=== PATIENT | male | born 1970 | race Caucasian/White ===

== ENCOUNTER 2024-01-15 14:21 | Emergency (ER) | payer MEDICAID ==
[~2024-01-15] VITALS: Ht 167.6 cm; Wt 51.9 kg
[2024-01-15 14:31] VITALS: BP 120/86; PULSE 82; RESP 18; TEMP 98.2; O2SAT 98
== END 2024-01-15 16:30 | disposition home or self-care (01) ==
LOC: ER 14:23 → EDBD 14:23 → ER 16:30
DX: R53.1 Weakness (principal); R51.9 Headache, unspecified; Z59.00 Homelessness unspecified; F15.90 Other stimulant use, unspecified, uncomplicated
CPT/HCPCS: 99281

== ENCOUNTER 2024-03-05 10:40 | Emergency (ER) | payer MEDICAID ==
[~2024-03-05] VITALS: Ht 175.3 cm; Wt 61.4 kg
[2024-03-05] MEDS ORDERED: ketorolac trometh 30MG/ML vial 30 MG/ML VIAL IV ONE (11:50)
[2024-03-05] MEDS: ketorolac trometh 30MG/ML vial 30 MG/ML VIAL IM ONE (11:55)
[2024-03-05 12:13] LABS: BASOPHILS # (AUTO) 0.1 X10'3 (0-0.2); BASOPHILS % (AUTO) 1.9 % (0-1); EOSINOPHILS # (AUTO) 0.5 X10'3 (0-0.9); EOSINOPHILS % (AUTO) 10.1 % (0-6); HEMOGLOBIN 12.1 g/dl (14.0-17.9); LYMPHOCYTES # (AUTO) 1.9 X10'3 (1.1-4.8); MEAN CORPUSCULAR HEMOGLOBIN 27.7 PG (27.0-31.0); MEAN CORPUSCULAR HGB CONC 32.6 g/dL (33.0-36.5); MEAN CORPUSCULAR VOLUME 84.7 FL (78-98); MEAN PLATELET VOLUME 7.5 FL (7.4-10.4); MONOCYTES # (AUTO) 0.7 X10'3 (0-0.9); MONOCYTES % (AUTO) 14.2 % (2-12); NEUTROPHILS # (AUTO) 1.6 X10'3 (1.8-7.7); NEUTROPHILS % (AUTO) 33.8 % (42-75); PLATELET COUNT 281 X10'3 (140-440); RED BLOOD COUNT 4.37 X10'6 (4.70-6.10); RED CELL DISTRIBUTION WIDTH 16.5 % (11.5-14.5); WHITE BLOOD COUNT 4.8 X10'3 (4.5-11.0)
[2024-03-05 12:27] LABS: BILIRUBIN,URINE NEGATIVE (Neg); CLARITY,URINE CLEAR (Clear); COLOR,URINE YELLOW (Yellow); GLUCOSE, URINE NEGATIVE (Neg); KETONES,URINE NEGATIVE (Neg); LEUKOCYTE ESTERASE ,URINE NEGATIVE (Neg); OCCULT BLOOD,URINE NEGATIVE (Neg); PROTEIN,URINE NEGATIVE (Neg)
[2024-03-05 12:30] LABS: ALANINE AMINOTRANSFERASE 39 U/L (12-78); ALBUMIN 2.8 G/DL (3.4-5.0); ALBUMIN/GLOBULIN RATIO 0.7 (1.1-1.5); ALKALINE PHOSPHATASE 55 IU/L (46-116); ANION GAP 4 (8-16); ASPARTATE AMINO TRANSFERASE 35 U/L (10-37); BILIRUBIN,TOTAL 0.4 MG/DL (0.1-1.0); BLOOD UREA NITROGEN 9 MG/DL (7-18); BUN/CREATININE RATIO 9.9 (10.0-20.0); CALCIUM 8.4 MG/DL (8.5-10.1); CHLORIDE 102 MMOL/L (99-107); CREATININE 0.91 MG/DL (0.60-1.10); ETHANOL < 10 MG/DL (<10); GLUCOSE 85 MG/DL (70-104); POTASSIUM 3.3 MMOL/L (3.5-5.1); SODIUM 140 MMOL/L (135-145); TOTAL CARBON DIOXIDE 33.6 MMOL/L (24-32); TOTAL PROTEIN 6.6 G/DL (6.4-8.2); eCRCL 80 ML/MIN; eGFR 86 ML/MIN
[2024-03-05 12:37] LABS: URINE AMPHETAMINE SCREEN POSITIVE (Neg); URINE BARBITUATE SCREEN NEGATIVE (Neg); URINE BENZODIAZEPINES SCREEN NEGATIVE (Neg); URINE CANNABINOID SCREEN POSITIVE (Neg); URINE COCAINE SCREEN NEGATIVE (Neg); URINE METHADONE SCREEN NEGATIVE (Neg); URINE OPIATE SCREEN NEGATIVE (Neg); URINE PHENCYCLIDINE SCREEN NEGATIVE (Neg)
[2024-03-05 12:41] LABS: NITRITES, URINE NEGATIVE (Neg); UA COLLECTION TYPE VOIDED
[2024-03-06] MEDS ORDERED: NICO-687 TOP (07:48)
[2024-03-06] MEDS ORDERED: TRAZ-256 PO (07:48)
[2024-03-06] MEDS ORDERED: LIT300C PO (07:48)
[2024-03-06] MEDS ORDERED: IBUP-1984 PO (07:48)
[2024-03-06] MEDS ORDERED: MELO-100 PO (07:48)
[2024-03-06] MEDS ORDERED: MELOXICAM 7.5 MG TABLET PO SCH (08:00)
[2024-03-06] MEDS ORDERED: ibuprofen tablet 400 MG TABLET PO SCH (08:41)
[2024-03-06] MEDS ORDERED: ibuprofen tablet 400 MG TABLET PO PRN (09:14)
[2024-03-06] MEDS: nicotine 21mg patch - 24 hr TD SCH (09:15)
[2024-03-06] MEDS: lithium carbonate 300mg SR tablet (LithoBID) PO SCH (09:18)
[2024-03-06] MEDS: MELOXICAM 7.5 MG TABLET PO PRN (09:21)
[2024-03-06 14:04] VITALS: BP 115/84; PULSE 78; RESP 15; TEMP 98.2; O2SAT 99
[2024-03-06] MEDS ORDERED: traZODone 50mg tablet PO SCH (21:00)
== END 2024-03-06 14:07 | disposition home or self-care (01) ==
LOC: ER 10:40
DX: R45.851 Suicidal ideations (principal); R11.2 Nausea with vomiting, unspecified; M54.2 Cervicalgia; F17.200 Nicotine dependence, unspecified, uncomplicated; F31.9 Bipolar disorder, unspecified; F12.90 Cannabis use, unspecified, uncomplicated; Z59.00 Homelessness unspecified; Z20.822 Contact with and (suspected) exposure to COVID-19
CPT/HCPCS: 36415; 80053; 80305; 80320; 81003; 85025; 87811; 99284

== ENCOUNTER 2024-03-29 14:00 | Emergency (ER) | payer MEDICAID ==
[~2024-03-29] VITALS: Ht 170.2 cm; Wt 74.0 kg
[~2024-03-29 14:00] MED LIST: IBUP-1984 PO; LIT300C PO; MELO-100 PO; NICO-687 TOP; TRAZ-256 PO
[2024-03-29] MEDS: ketorolac trometh 15mg/ml vial 15 MG/ML ML IM ONE (15:46)
[2024-03-29 16:05] VITALS: BP 114/84; PULSE 77; RESP 16; TEMP 98.8; O2SAT 100
== END 2024-03-29 16:08 | disposition home or self-care (01) ==
LOC: ER 14:01
DX: G89.29 Other chronic pain (principal); M54.50 Low back pain, unspecified; F12.90 Cannabis use, unspecified, uncomplicated; F31.9 Bipolar disorder, unspecified; Z79.899 Other long term (current) drug therapy; Z79.1 Long term (current) use of non-steroidal anti-inflammatories (NSAID); Z59.00 Homelessness unspecified
CPT/HCPCS: 96372; 99283; J1885

== ENCOUNTER 2024-04-01 14:45 | Emergency (ER) | payer MEDICAID ==
[~2024-04-01] VITALS: Ht 170.2 cm; Wt 53.0 kg
[2024-04-01] MEDS: ondansetron 4mg rapidly disintigrating tab PO ONE (16:36)
[2024-04-01] MEDS: ketorolac trometh 15mg/ml vial 15 MG/ML ML IM ONE (16:38)
[2024-04-01 16:57] VITALS: BP 122/68; PULSE 76; RESP 16; TEMP 98.2; O2SAT 98
[2024-04-02] MEDS ORDERED: ONDA-245 PO (03:08)
== END 2024-04-01 16:58 | disposition home or self-care (01) ==
LOC: ER 14:46
DX: M54.50 Low back pain, unspecified (principal); R11.2 Nausea with vomiting, unspecified; F12.10 Cannabis abuse, uncomplicated; Z79.1 Long term (current) use of non-steroidal anti-inflammatories (NSAID); Z79.899 Other long term (current) drug therapy
CPT/HCPCS: 96372; 99283; J1885

== ENCOUNTER 2024-04-01 23:44 | Emergency (ER) | payer MEDICAID ==
[~2024-04-01] VITALS: Ht 170.2 cm; Wt 56.4 kg
[2024-04-02 00:37] LABS: ALANINE AMINOTRANSFERASE 56 U/L (12-78); ALBUMIN 3.1 G/DL (3.4-5.0); ALBUMIN/GLOBULIN RATIO 0.8 (1.1-1.5); ALKALINE PHOSPHATASE 60 IU/L (46-116); ANION GAP 5 (8-16); ASPARTATE AMINO TRANSFERASE 31 U/L (10-37); BILIRUBIN,TOTAL 0.4 MG/DL (0.1-1.0); BLOOD UREA NITROGEN 27 MG/DL (7-18); BUN/CREATININE RATIO 19.4 (10.0-20.0); CHLORIDE 100 MMOL/L (99-107); CREATININE 1.39 MG/DL (0.60-1.10); GLUCOSE 120 MG/DL (70-104); POTASSIUM 3.6 MMOL/L (3.5-5.1); SODIUM 142 MMOL/L (135-145); TOTAL PROTEIN 7.1 G/DL (6.4-8.2); eCRCL 48 ML/MIN; eGFR 53 ML/MIN
[2024-04-02 00:46] LABS: LIPASE 49 U/L (16-77)
[2024-04-02 01:07] LABS: BASOPHILS # (AUTO) 0.1 X10'3 (0-0.2); BASOPHILS % (AUTO) 0.7 % (0-1); EOSINOPHILS # (AUTO) 0.5 X10'3 (0-0.9); EOSINOPHILS % (AUTO) 6.2 % (0-6); HEMATOCRIT 41.3 % (42.0-52.0); HEMOGLOBIN 13.2 g/dl (14.0-17.9); LYMPHOCYTES # (AUTO) 2.2 X10'3 (1.1-4.8); LYMPHOCYTES % (AUTO) 25.5 % (21-51); MEAN CORPUSCULAR HGB CONC 31.9 g/dL (33.0-36.5); MEAN CORPUSCULAR VOLUME 84.8 FL (78-98); MONOCYTES # (AUTO) 0.8 X10'3 (0-0.9); MONOCYTES % (AUTO) 8.6 % (2-12); NEUTROPHILS # (AUTO) 5.2 X10'3 (1.8-7.7); PLATELET COUNT 299 X10'3 (140-440); RED BLOOD COUNT 4.88 X10'6 (4.70-6.10); RED CELL DISTRIBUTION WIDTH 16.2 % (11.5-14.5); WHITE BLOOD COUNT 8.8 X10'3 (4.5-11.0)
[2024-04-02] MEDS: normal saline 1000ml 1,000 ML IV ONE (01:08)
[2024-04-02] MEDS: ondansetron/PF 4mg/2ml inj IV ONE (01:09)
[2024-04-02] MEDS: ketorolac trometh 15mg/ml vial 15 MG/ML ML IV ONE (01:10)
[2024-04-02] MEDS ORDERED: ONDA-245 PO (03:08)
[2024-04-02 04:14] VITALS: BP 116/72; PULSE 90; RESP 19; TEMP 98.1; O2SAT 99
== END 2024-04-02 04:18 | disposition home or self-care (01) ==
LOC: ER 23:44
DX: K29.00 Acute gastritis without bleeding (principal); F17.200 Nicotine dependence, unspecified, uncomplicated; F12.90 Cannabis use, unspecified, uncomplicated; Z79.1 Long term (current) use of non-steroidal anti-inflammatories (NSAID); Z79.899 Other long term (current) drug therapy; Z59.00 Homelessness unspecified
CPT/HCPCS: 36415; 80053; 83690; 84145; 84484; 85025; 96361; 96374; 96375; 99285; J1885; J2405; J7030

== ENCOUNTER 2024-05-13 16:14 | Emergency (ER) | payer MEDICAID ==
[~2024-05-13] VITALS: Ht 165.1 cm; Wt 54.5 kg
[~2024-05-13 16:14] MED LIST changes: +ONDA-245 PO
[2024-05-13 18:55] LABS: BASOPHILS # (AUTO) 0.1 X10'3 (0-0.2); EOSINOPHILS # (AUTO) 0.1 X10'3 (0-0.9); LYMPHOCYTES # (AUTO) 1.3 X10'3 (1.1-4.8); LYMPHOCYTES % (AUTO) 10.2 % (21-51); MEAN PLATELET VOLUME 6.7 FL (7.4-10.4); NEUTROPHILS # (AUTO) 10.5 X10'3 (1.8-7.7)
[2024-05-13 18:57] LABS: BASOPHILS % (AUTO) 0.5 % (0-1); EOSINOPHILS % (AUTO) 0.6 % (0-6); HEMATOCRIT 29.4 % (42.0-52.0); HEMOGLOBIN 9.3 g/dl (14.0-17.9); MEAN CORPUSCULAR HEMOGLOBIN 26.7 PG (27.0-31.0); MEAN CORPUSCULAR HGB CONC 31.5 g/dL (33.0-36.5); MEAN CORPUSCULAR VOLUME 84.7 FL (78-98); MONOCYTES # (AUTO) 1.1 X10'3 (0-0.9); MONOCYTES % (AUTO) 8.6 % (2-12); NEUTROPHILS % (AUTO) 80.1 % (42-75); PLATELET COUNT 793 X10'3 (140-440); RED BLOOD COUNT 3.47 X10'6 (4.70-6.10); RED CELL DISTRIBUTION WIDTH 16.3 % (11.5-14.5); WHITE BLOOD COUNT 13.1 X10'3 (4.5-11.0)
[2024-05-13 19:15] LABS: ALBUMIN 2.6 G/DL (3.4-5.0); ANION GAP 3 (8-16); BLOOD UREA NITROGEN 8 MG/DL (7-18); CALCIUM 8.6 MG/DL (8.5-10.1); CHLORIDE 103 MMOL/L (99-107); ETHANOL < 10 MG/DL (<10); GLUCOSE 140 MG/DL (70-104); POTASSIUM 3.7 MMOL/L (3.5-5.1); SODIUM 137 MMOL/L (135-145); THYROID STIMULATING HORMONE 1.95 ulU/ml (0.34-4.50); TOTAL CARBON DIOXIDE 30.7 MMOL/L (24-32); eCRCL 64 ML/MIN; eGFR 78 ML/MIN
[2024-05-13] MEDS: famotidine 20mg tablet PO ONE (19:54)
[2024-05-13] MEDS: mag hydrox/Alum hydrox/simeth 30ml oral suspension PO ONE (19:55)
[2024-05-13 20:14] LABS: BILIRUBIN,URINE NEGATIVE (Neg); CLARITY,URINE CLEAR (Clear); COLOR,URINE YELLOW (Yellow); GLUCOSE, URINE NEGATIVE (Neg); KETONES,URINE NEGATIVE (Neg); LEUKOCYTE ESTERASE ,URINE NEGATIVE (Neg); NITRITES, URINE NEGATIVE (Neg); OCCULT BLOOD,URINE NEGATIVE (Neg); PH,URINE 8.5 (4.8-8.0); PROTEIN,URINE NEGATIVE (Neg)
[2024-05-13 20:23] LABS: UA COLLECTION TYPE CLN CATCH MIDSTREAM
[2024-05-13 20:41] LABS: URINE AMPHETAMINE SCREEN NEGATIVE (Neg); URINE BARBITUATE SCREEN NEGATIVE (Neg); URINE BENZODIAZEPINES SCREEN NEGATIVE (Neg); URINE CANNABINOID SCREEN POSITIVE (Neg); URINE COCAINE SCREEN NEGATIVE (Neg); URINE METHADONE SCREEN NEGATIVE (Neg); URINE OPIATE SCREEN NEGATIVE (Neg); URINE PHENCYCLIDINE SCREEN NEGATIVE (Neg)
[2024-05-14 10:54] VITALS: BP 110/82; PULSE 71; RESP 16; TEMP 98.1; O2SAT 98
[2024-05-14 15:48] LABS: ALANINE AMINOTRANSFERASE 25 U/L (12-78); ALBUMIN 2.2 G/DL (3.4-5.0); ALBUMIN/GLOBULIN RATIO 0.5 (1.1-1.5); ALKALINE PHOSPHATASE 85 IU/L (46-116); ANION GAP 5 (8-16); ASPARTATE AMINO TRANSFERASE 20 U/L (10-37); BILIRUBIN,TOTAL 0.2 MG/DL (0.1-1.0); BLOOD UREA NITROGEN 11 MG/DL (7-18); BUN/CREATININE RATIO 10.3 (10.0-20.0); CALCIUM 8.5 MG/DL (8.5-10.1); CHLORIDE 102 MMOL/L (99-107); CREATININE 1.07 MG/DL (0.60-1.10); GLUCOSE 132 MG/DL (70-104); POTASSIUM 4.2 MMOL/L (3.5-5.1); SODIUM 134 MMOL/L (135-145); TOTAL CARBON DIOXIDE 27.5 MMOL/L (24-32); TOTAL PROTEIN 6.3 G/DL (6.4-8.2); eCRCL 60 ML/MIN; eGFR 72 ML/MIN
== END 2024-05-14 19:36 | disposition still patient (30) ==
LOC: ER 16:15
DX: R45.851 Suicidal ideations (principal); Z20.822 Contact with and (suspected) exposure to COVID-19; F31.9 Bipolar disorder, unspecified; F12.90 Cannabis use, unspecified, uncomplicated
CPT/HCPCS: 36415; 80048; 80053; 80305; 80320; 81003; 84443; 85025; 87811; 99285; A6212

== ENCOUNTER 2024-05-29 09:24 | Emergency (ER) | payer MEDICAID ==
[~2024-05-29] VITALS: Ht 167.6 cm; Wt 54.1 kg
[~2024-05-29 09:24] MED LIST changes: +PER5325T PO
[2024-05-29 09:49] VITALS: BP 103/75; PULSE 88; O2SAT 94
[2024-05-29 10:57] VITALS: RESP 16
[2024-05-29] MEDS: ketorolac trometh 15mg/ml vial 15 MG/ML ML IM ONE (10:57)
[2024-05-29] MEDS ORDERED: IBUP-1985 PO (10:57)
[2024-05-29 11:01] VITALS: TEMP 98.4
== END 2024-05-29 11:02 | disposition home or self-care (01) ==
LOC: ER 09:25
DX: G89.29 Other chronic pain (principal); M54.6 Pain in thoracic spine; F12.90 Cannabis use, unspecified, uncomplicated; Z79.1 Long term (current) use of non-steroidal anti-inflammatories (NSAID); Z79.2 Long term (current) use of antibiotics; Z79.899 Other long term (current) drug therapy
CPT/HCPCS: 96372; 99283; J1885

== ENCOUNTER 2024-05-30 08:10 | Emergency (ER) | payer MEDICAID ==
[~2024-05-30] VITALS: Ht 167.6 cm; Wt 53.2 kg
[~2024-05-30 08:10] MED LIST changes: +IBUP-1985 PO
[2024-05-30] MEDS: ketorolac trometh 15mg/ml vial 15 MG/ML ML IM ONE (08:38)
[2024-05-30 08:41] VITALS: BP 147/88; PULSE 113; RESP 16; TEMP 98.3; O2SAT 100
== END 2024-05-30 08:44 | disposition home or self-care (01) ==
LOC: ER 08:11
DX: G89.29 Other chronic pain (principal); M54.50 Low back pain, unspecified; F12.90 Cannabis use, unspecified, uncomplicated; Z88.8 Allergy status to other drugs, medicaments and biological substances
CPT/HCPCS: 96372; 99283; J1885

== ENCOUNTER 2024-05-31 09:58 | Emergency (ER) | payer MEDICAID ==
[~2024-05-31] VITALS: Ht 160 cm; Wt 68.0 kg
[2024-05-31 10:15] VITALS: PULSE 102; O2SAT 99
[2024-05-31 11:59] VITALS: RESP 16
[2024-05-31] MEDS: ketorolac trometh 15mg/ml vial 15 MG/ML ML IM ONE (11:59)
[2024-05-31 12:22] VITALS: TEMP 97.8
== END 2024-05-31 12:23 | disposition home or self-care (01) ==
LOC: ER 09:58
DX: G89.29 Other chronic pain (principal); M54.9 Dorsalgia, unspecified; F12.90 Cannabis use, unspecified, uncomplicated; Z79.1 Long term (current) use of non-steroidal anti-inflammatories (NSAID); Z79.899 Other long term (current) drug therapy
CPT/HCPCS: 96372; 99283; J1885

== ENCOUNTER 2024-06-05 16:21 | Emergency (ER) | payer MEDICAID ==
[~2024-06-05] VITALS: Ht 167.6 cm; Wt 61.4 kg
[2024-06-05 16:33] VITALS: BP 126/75; PULSE 99; RESP 15; TEMP 98; O2SAT 99
[2024-06-05] MEDS ORDERED: acetaminophen 325mg tablet PO ONE (19:55)
[2024-06-05] MEDS ORDERED: LANS15TA5 PO (19:56)
[2024-06-06] MEDS ORDERED: lansoprazole 15mg solutab PO SCH (07:30)
== END 2024-06-05 20:13 | disposition left against medical advice (07) ==
LOC: ER 16:22
DX: K21.9 Gastro-esophageal reflux disease without esophagitis (principal); F12.90 Cannabis use, unspecified, uncomplicated; G89.29 Other chronic pain; Z79.1 Long term (current) use of non-steroidal anti-inflammatories (NSAID); Z79.899 Other long term (current) drug therapy
CPT/HCPCS: 99281

== ENCOUNTER 2024-06-19 09:27 | Emergency (ER) | payer MEDICAID ==
[~2024-06-19 09:27] MED LIST changes: +LANS15TA5 PO
== END 2024-06-19 12:44 | disposition left against medical advice (07) ==
LOC: ER 09:27
DX: M54.9 Dorsalgia, unspecified (principal); Z53.21 Procedure and treatment not carried out due to patient leaving prior to being seen by health care provider

== ENCOUNTER 2024-06-22 12:56 | Emergency (ER) | payer MEDICAID ==
[~2024-06-22] VITALS: Ht 170.2 cm; Wt 60.0 kg
[2024-06-22 13:01] VITALS: BP 131/97; PULSE 112; RESP 16; TEMP 98.4; O2SAT 100
[2024-06-22] MEDS ORDERED: MELO-102 PO (14:59)
== END 2024-06-22 15:10 | disposition home or self-care (01) ==
LOC: ER 12:56
DX: G89.29 Other chronic pain (principal); M54.59 Other low back pain; F31.9 Bipolar disorder, unspecified; F12.90 Cannabis use, unspecified, uncomplicated; Z59.00 Homelessness unspecified
CPT/HCPCS: 99282

== ENCOUNTER 2024-06-27 11:12 | Emergency (ER) | payer MEDICAID, OTHER ==
[~2024-06-27] VITALS: Ht 170.2 cm; Wt 66.0 kg
[~2024-06-27 11:12] MED LIST changes: +MELO-102 PO; -PER5325T PO
[2024-06-27 11:22] VITALS: BP 116/78; PULSE 89; RESP 18; TEMP 98.1; O2SAT 99
[2024-06-27] MEDS: acetaminophen 325mg tablet PO ONE (14:32)
== END 2024-06-27 14:48 | disposition home or self-care (01) ==
LOC: ER 11:12
DX: G89.29 Other chronic pain (principal); M54.59 Other low back pain; F31.9 Bipolar disorder, unspecified; Z59.00 Homelessness unspecified; F12.90 Cannabis use, unspecified, uncomplicated
CPT/HCPCS: 99282; 99283

== ENCOUNTER 2024-07-13 18:40 | Emergency (ER) | payer MEDICAID, OTHER ==
[~2024-07-13] VITALS: Ht 170.2 cm; Wt 54.1 kg
[2024-07-13 19:00] VITALS: TEMP 98.2
[2024-07-13 21:06] VITALS: BP 136/89; PULSE 70; O2SAT 99
[2024-07-13 21:30] VITALS: RESP 18
[2024-07-13] MEDS: proCHLORperazine 10 MG/2 ml inj IM ONE (21:30)
[2024-07-13] MEDS: ketorolac trometh 30MG/ML vial 30 MG/ML VIAL IM ONE (21:30)
[2024-07-13] MEDS: acetaminophen 325mg tablet PO ONE (21:31)
== END 2024-07-13 21:52 | disposition home or self-care (01) ==
LOC: ER 18:41
DX: G43.909 Migraine, unspecified, not intractable, without status migrainosus (principal); G89.29 Other chronic pain; M54.9 Dorsalgia, unspecified; F31.9 Bipolar disorder, unspecified; F12.90 Cannabis use, unspecified, uncomplicated; F10.90 Alcohol use, unspecified, uncomplicated; Y90.9 Presence of alcohol in blood, level not specified
CPT/HCPCS: 96372; 99284; J0780; J1885

== ENCOUNTER 2024-07-15 19:17 | Emergency (ER) | payer MEDICAID ==
[~2024-07-15] VITALS: Ht 170.2 cm; Wt 59.8 kg
[2024-07-15] MEDS: diphenhydrAMINE 25mg capsule PO ONE (21:40)
[2024-07-15] MEDS: ketorolac trometh 15mg/ml vial 15 MG/ML ML IM ONE (21:40)
[2024-07-15] MEDS: proCHLORperazine 10 MG/2 ml inj IM ONE (21:40)
[2024-07-15 22:06] VITALS: BP 135/92; PULSE 88; RESP 16; O2SAT 99
[2024-07-15 22:24] VITALS: TEMP 99.2
== END 2024-07-15 22:24 | disposition home or self-care (01) ==
LOC: ER 19:18
DX: G43.909 Migraine, unspecified, not intractable, without status migrainosus (principal); G89.29 Other chronic pain; M54.9 Dorsalgia, unspecified; F31.9 Bipolar disorder, unspecified; F10.90 Alcohol use, unspecified, uncomplicated; F12.90 Cannabis use, unspecified, uncomplicated; Y90.9 Presence of alcohol in blood, level not specified
CPT/HCPCS: 96372; 99284; J0780; J1885; Q0163

== ENCOUNTER 2024-07-21 02:12 | Emergency (ER) | payer MEDICAID ==
[~2024-07-21] VITALS: Ht 170.2 cm; Wt 56.6 kg
[2024-07-21 02:14] VITALS: BP 127/74; PULSE 79
[2024-07-21] MEDS: ketorolac trometh 15mg/ml vial 15 MG/ML ML IM ONE (02:39)
[2024-07-21] MEDS: acetaminophen 325mg tablet PO ONE (02:39)
[2024-07-21] MEDS: proCHLORperazine 10mg tablet PO ONE (02:39)
[2024-07-21 02:43] VITALS: RESP 12; TEMP 98; O2SAT 100
== END 2024-07-21 02:44 | disposition home or self-care (01) ==
LOC: ER 02:13
DX: G43.909 Migraine, unspecified, not intractable, without status migrainosus (principal); F31.9 Bipolar disorder, unspecified; F12.90 Cannabis use, unspecified, uncomplicated; F10.90 Alcohol use, unspecified, uncomplicated; Y90.9 Presence of alcohol in blood, level not specified
CPT/HCPCS: 99281

== ENCOUNTER 2024-07-24 20:49 | Emergency (ER) | payer MEDICAID ==
[~2024-07-24] VITALS: Ht 170.2 cm; Wt 57.1 kg
[2024-07-24 21:15] VITALS: BP 119/72; PULSE 70; RESP 20; TEMP 98.5; O2SAT 98
== END 2024-07-24 23:17 | disposition left against medical advice (07) ==
LOC: ER 20:49
DX: G43.909 Migraine, unspecified, not intractable, without status migrainosus (principal); Z53.21 Procedure and treatment not carried out due to patient leaving prior to being seen by health care provider

== ENCOUNTER 2024-07-25 14:50 | Emergency (ER) | payer MEDICAID ==
[2024-07-25 16:02] LABS: BILIRUBIN,URINE SMALL (Neg); CLARITY,URINE CLEAR (Clear); COLOR,URINE YELLOW (Yellow); GLUCOSE, URINE NEGATIVE (Neg); KETONES,URINE TRACE mg/dl (Neg); LEUKOCYTE ESTERASE ,URINE NEGATIVE (Neg); NITRITES, URINE NEGATIVE (Neg); OCCULT BLOOD,URINE SMALL (Neg); PROTEIN,URINE 30 mg/dl (Neg)
[2024-07-25 16:04] LABS: UA COLLECTION TYPE CLN CATCH MIDSTREAM
[2024-07-25 16:05] LABS: URINE AMPHETAMINE SCREEN POSITIVE (Neg); URINE BARBITUATE SCREEN NEGATIVE (Neg); URINE BENZODIAZEPINES SCREEN NEGATIVE (Neg); URINE CANNABINOID SCREEN POSITIVE (Neg); URINE COCAINE SCREEN NEGATIVE (Neg); URINE METHADONE SCREEN NEGATIVE (Neg); URINE OPIATE SCREEN NEGATIVE (Neg); URINE PHENCYCLIDINE SCREEN NEGATIVE (Neg)
[2024-07-25 16:08] LABS: BACTERIA,URINE FEW /HPF (Neg); RBC,URINE 20-50 /HPF (0-2); SQUAMOUS EPITHELIAL CELL,UR FEW /LPF (FEW); WBC,URINE 0-4 /HPF (0-4)
[2024-07-25 16:09] LABS: TRANSITIONAL EPI CELLS,URINE FEW /HPF
[2024-07-25 16:18] LABS: BASOPHILS # (AUTO) 0.1 X10'3 (0-0.2); BASOPHILS % (AUTO) 1.4 % (0-1); EOSINOPHILS # (AUTO) 0.1 X10'3 (0-0.9); EOSINOPHILS % (AUTO) 4.1 % (0-6); HEMATOCRIT 27.2 % (42.0-52.0); HEMOGLOBIN 8.4 g/dl (14.0-17.9); LYMPHOCYTES # (AUTO) 1.5 X10'3 (1.1-4.8); LYMPHOCYTES % (AUTO) 39.6 % (21-51); MEAN CORPUSCULAR HEMOGLOBIN 21.4 PG (27.0-31.0); MEAN CORPUSCULAR HGB CONC 30.8 g/dL (33.0-36.5); MEAN CORPUSCULAR VOLUME 69.6 FL (78-98); MEAN PLATELET VOLUME 7.4 FL (7.4-10.4); MONOCYTES # (AUTO) 0.6 X10'3 (0-0.9); MONOCYTES % (AUTO) 15.1 % (2-12); NEUTROPHILS # (AUTO) 1.5 X10'3 (1.8-7.7); NEUTROPHILS % (AUTO) 39.8 % (42-75); PLATELET COUNT 386 X10'3 (140-440); RED BLOOD COUNT 3.91 X10'6 (4.70-6.10); RED CELL DISTRIBUTION WIDTH 19.4 % (11.5-14.5); WHITE BLOOD COUNT 3.7 X10'3 (4.5-11.0)
[2024-07-25 16:42] LABS: ANION GAP 4 (8-16); BLOOD UREA NITROGEN 15 MG/DL (7-18); BUN/CREATININE RATIO 14.4 (10.0-20.0); CALCIUM 8.3 MG/DL (8.5-10.1); CHLORIDE 108 MMOL/L (99-107); CREATININE 1.04 MG/DL (0.60-1.10); ETHANOL < 10 MG/DL (<10); GLUCOSE 101 MG/DL (70-104); SODIUM 141 MMOL/L (135-145); THYROID STIMULATING HORMONE 1.06 ulU/ml (0.34-4.50); TOTAL CARBON DIOXIDE 29.3 MMOL/L (24-32); eGFR 74 ML/MIN
[2024-07-25 16:44] LABS: POTASSIUM 2.9 MMOL/L (3.5-5.1)
[2024-07-25 16:57] LABS: MICROCYTOSIS 2+; TOTAL CELLS COUNTED 100
[2024-07-25 16:58] LABS: ANISOCYTOSIS 2+; HYPOCHROMASIA 1+; PLATELET ESTIMATE NORMAL
[2024-07-25 16:59] LABS: ELLIPTOCYTES FW
[2024-07-25] MEDS: potassium bicarbonate/cit acid 25mEq tablet.effervescent PO STA (17:33)
[2024-07-26 12:51] VITALS: BP 141/80; PULSE 82; RESP 12; TEMP 98.1; O2SAT 97
== END 2024-07-26 12:56 | disposition still patient (30) ==
LOC: ER 14:50
DX: R45.851 Suicidal ideations (principal); G43.909 Migraine, unspecified, not intractable, without status migrainosus; F31.9 Bipolar disorder, unspecified; F12.90 Cannabis use, unspecified, uncomplicated; F10.90 Alcohol use, unspecified, uncomplicated; Z20.822 Contact with and (suspected) exposure to COVID-19; Y90.9 Presence of alcohol in blood, level not specified
CPT/HCPCS: 36415; 80048; 80305; 80320; 81001; 84443; 85007; 85025; 87811; 99283; 99284

== ENCOUNTER 2024-08-05 21:57 | Emergency (ER) | payer MEDICAID ==
[~2024-08-05] VITALS: Ht 167.6 cm; Wt 65.0 kg
[2024-08-05 21:58] VITALS: BP 149/98; PULSE 90; RESP 15; TEMP 97.6; O2SAT 98
== END 2024-08-05 22:24 | disposition home or self-care (01) ==
LOC: ER 21:58
DX: Z00.00 Encounter for general adult medical examination without abnormal findings (principal); R05.9 Cough, unspecified; G43.909 Migraine, unspecified, not intractable, without status migrainosus; F10.90 Alcohol use, unspecified, uncomplicated; F12.90 Cannabis use, unspecified, uncomplicated; F31.9 Bipolar disorder, unspecified; Y90.9 Presence of alcohol in blood, level not specified
CPT/HCPCS: 99283

== ENCOUNTER 2024-08-08 17:19 | Emergency (ER) | payer MEDICAID ==
[~2024-08-08] VITALS: Ht 170.2 cm; Wt 59.1 kg
[2024-08-08 18:09] VITALS: BP 117/79; PULSE 78; RESP 16; TEMP 98.2; O2SAT 95
== END 2024-08-08 19:30 | disposition home or self-care (01) ==
LOC: ER 17:20
DX: R45.851 Suicidal ideations (principal); G89.29 Other chronic pain; G43.909 Migraine, unspecified, not intractable, without status migrainosus; F12.90 Cannabis use, unspecified, uncomplicated; Z79.899 Other long term (current) drug therapy
CPT/HCPCS: 99283

== ENCOUNTER 2024-09-09 02:10 | Emergency (ER) | payer MEDICAID ==
[~2024-09-09] VITALS: Ht 170.2 cm; Wt 61.4 kg
[2024-09-09 02:14] VITALS: BP 135/78; PULSE 80; RESP 18; TEMP 97.4; O2SAT 98
== END 2024-09-09 03:11 | disposition left against medical advice (07) ==
LOC: ER 02:12
DX: M54.9 Dorsalgia, unspecified (principal); Z53.21 Procedure and treatment not carried out due to patient leaving prior to being seen by health care provider

== ENCOUNTER 2024-09-11 14:08 | Emergency (ER) | payer MEDICAID ==
[~2024-09-11] VITALS: Ht 170.2 cm; Wt 51.9 kg
[2024-09-11 15:33] LABS: BASOPHILS # (AUTO) 0.1 X10'3 (0-0.2); BASOPHILS % (AUTO) 0.8 % (0-1); EOSINOPHILS % (AUTO) 0.5 % (0-6); HEMATOCRIT 25.8 % (42.0-52.0); HEMOGLOBIN 8.1 g/dl (14.0-17.9); LYMPHOCYTES # (AUTO) 1.5 X10'3 (1.1-4.8); LYMPHOCYTES % (AUTO) 15.1 % (21-51); MEAN CORPUSCULAR HEMOGLOBIN 23.9 PG (27.0-31.0); MEAN CORPUSCULAR HGB CONC 31.5 g/dL (33.0-36.5); MEAN CORPUSCULAR VOLUME 75.9 FL (78-98); MEAN PLATELET VOLUME 6.9 FL (7.4-10.4); MONOCYTES # (AUTO) 1.1 X10'3 (0-0.9); MONOCYTES % (AUTO) 10.8 % (2-12); NEUTROPHILS # (AUTO) 7.2 X10'3 (1.8-7.7); NEUTROPHILS % (AUTO) 72.8 % (42-75); PLATELET COUNT 361 X10'3 (140-440); RED CELL DISTRIBUTION WIDTH 27.1 % (11.5-14.5); WHITE BLOOD COUNT 9.9 X10'3 (4.5-11.0)
[2024-09-11 15:59] LABS: ALBUMIN 2.6 G/DL (3.4-5.0); ANION GAP 6 (8-16); BLOOD UREA NITROGEN 11 MG/DL (7-18); BUN/CREATININE RATIO 12.5 (10.0-20.0); CALCIUM 8.4 MG/DL (8.5-10.1); CHLORIDE 106 MMOL/L (99-107); CREATININE 0.88 MG/DL (0.60-1.10); ETHANOL < 10 MG/DL (<10); GLUCOSE 92 MG/DL (70-104); POTASSIUM 3.9 MMOL/L (3.5-5.1); SODIUM 140 MMOL/L (135-145); THYROID STIMULATING HORMONE 1.68 ulU/ml (0.34-4.50); TOTAL CARBON DIOXIDE 28.5 MMOL/L (24-32); eCRCL 70 ML/MIN; eGFR 90 ML/MIN
[2024-09-11 16:39] LABS: BILIRUBIN,URINE NEGATIVE (Neg); CLARITY,URINE CLEAR (Clear); COLOR,URINE YELLOW (Yellow); GLUCOSE, URINE NEGATIVE (Neg); KETONES,URINE NEGATIVE (Neg); LEUKOCYTE ESTERASE ,URINE NEGATIVE (Neg); NITRITES, URINE NEGATIVE (Neg); OCCULT BLOOD,URINE NEGATIVE (Neg); PH,URINE 6.5 (4.8-8.0); PROTEIN,URINE TRACE mg/dl (Neg)
[2024-09-11 16:42] LABS: UA COLLECTION TYPE CLN CATCH MIDSTREAM
[2024-09-11 16:43] LABS: BACTERIA,URINE NONE SEEN /HPF (Neg); RBC,URINE NONE SEEN /HPF (0-2); WBC,URINE 0-4 /HPF (0-4)
[2024-09-11 16:44] LABS: MUCUS STRANDS NONE SEEN /LPF (Neg); SQUAMOUS EPITHELIAL CELL,UR NONE SEEN /LPF (FEW)
[2024-09-11 17:00] LABS: URINE AMPHETAMINE SCREEN POSITIVE (Neg); URINE BARBITUATE SCREEN NEGATIVE (Neg); URINE BENZODIAZEPINES SCREEN NEGATIVE (Neg); URINE CANNABINOID SCREEN POSITIVE (Neg); URINE COCAINE SCREEN NEGATIVE (Neg); URINE METHADONE SCREEN NEGATIVE (Neg); URINE OPIATE SCREEN NEGATIVE (Neg); URINE PHENCYCLIDINE SCREEN NEGATIVE (Neg)
[2024-09-11] MEDS ORDERED: PANT40TA54 PO (19:37)
[2024-09-11] MEDS ORDERED: QUET-1 PO (19:37)
[2024-09-11] MEDS: traMADol 50MG tablet PO ONE (19:50)
[2024-09-11] MEDS: quetiapine 100mg tablet PO SCH (20:12)
[2024-09-11] MEDS: cephalexin 250mg capsule PO SCH (20:12)
[2024-09-12] MEDS: pantoprazole 40mg Tablet.DR PO SCH (09:20)
[2024-09-12 13:41] VITALS: BP 99/61; PULSE 90; RESP 17; TEMP 98.4; O2SAT 97
== END 2024-09-12 13:38 | disposition still patient (30) ==
LOC: ER 14:09
DX: R45.851 Suicidal ideations (principal); L03.114 Cellulitis of left upper limb; G89.29 Other chronic pain; M54.9 Dorsalgia, unspecified; F15.90 Other stimulant use, unspecified, uncomplicated; G43.909 Migraine, unspecified, not intractable, without status migrainosus; F12.90 Cannabis use, unspecified, uncomplicated; F31.9 Bipolar disorder, unspecified; Z79.899 Other long term (current) drug therapy; Z59.00 Homelessness unspecified; Z20.822 Contact with and (suspected) exposure to COVID-19
CPT/HCPCS: 36415; 80048; 80305; 80320; 81001; 84443; 85025; 87811; 99284; 99285

== ENCOUNTER 2024-09-15 13:33 | Emergency (ER) | payer MEDICAID ==
[~2024-09-15] VITALS: Ht 170.2 cm; Wt 52.1 kg
[~2024-09-15 13:33] MED LIST changes: -IBUP-1984 PO; -IBUP-1985 PO; -LANS15TA5 PO; -LIT300C PO; -MELO-100 PO; -MELO-102 PO; -NICO-687 TOP; -ONDA-245 PO; +PANT40TA54 PO; +QUET-1 PO; -TRAZ-256 PO
[2024-09-15 15:47] LABS: BASOPHILS # (AUTO) 0.1 X10'3 (0-0.2); EOSINOPHILS # (AUTO) 0.1 X10'3 (0-0.9); HEMOGLOBIN 8.3 g/dl (14.0-17.9); LYMPHOCYTES # (AUTO) 1.3 X10'3 (1.1-4.8); MEAN PLATELET VOLUME 6.4 FL (7.4-10.4); MONOCYTES # (AUTO) 0.6 X10'3 (0-0.9); NEUTROPHILS # (AUTO) 1.5 X10'3 (1.8-7.7); WHITE BLOOD COUNT 3.6 X10'3 (4.5-11.0)
[2024-09-15 15:49] LABS: BASOPHILS % (AUTO) 2.9 % (0-1); EOSINOPHILS % (AUTO) 3.7 % (0-6); HEMATOCRIT 26.3 % (42.0-52.0); MEAN CORPUSCULAR HEMOGLOBIN 24.1 PG (27.0-31.0); MEAN CORPUSCULAR HGB CONC 31.6 g/dL (33.0-36.5); MEAN CORPUSCULAR VOLUME 76.2 FL (78-98); MONOCYTES % (AUTO) 17.1 % (2-12); NEUTROPHILS % (AUTO) 40.3 % (42-75); PLATELET COUNT 523 X10'3 (140-440); RED BLOOD COUNT 3.45 X10'6 (4.70-6.10); RED CELL DISTRIBUTION WIDTH 26.1 % (11.5-14.5)
[2024-09-15 15:58] LABS: ALBUMIN 2.5 G/DL (3.4-5.0); ANION GAP 4 (8-16); BLOOD UREA NITROGEN 12 MG/DL (7-18); CALCIUM 8.4 MG/DL (8.5-10.1); CHLORIDE 105 MMOL/L (99-107); GLUCOSE 100 MG/DL (70-104); POTASSIUM 3.7 MMOL/L (3.5-5.1); SODIUM 140 MMOL/L (135-145); TOTAL CARBON DIOXIDE 31.4 MMOL/L (24-32); eCRCL 62 ML/MIN; eGFR 78 ML/MIN
[2024-09-15 16:06] LABS: ETHANOL < 10 MG/DL (<10)
[2024-09-15 16:22] LABS: TOTAL CELLS COUNTED 100
[2024-09-15 16:23] LABS: PLATELET ESTIMATE INCREASED
[2024-09-15 16:24] LABS: ANISOCYTOSIS 3+; HYPOCHROMASIA 2+; MICROCYTOSIS 1+
[2024-09-15 16:25] LABS: ACANTHOCYTES FEW; ELLIPTOCYTES 1+; TEAR DROP CELLS 1+
[2024-09-15 16:36] LABS: BILIRUBIN,URINE SMALL (Neg); CLARITY,URINE CLEAR (Clear); COLOR,URINE YELLOW (Yellow); GLUCOSE, URINE NEGATIVE (Neg); KETONES,URINE TRACE mg/dl (Neg); LEUKOCYTE ESTERASE ,URINE NEGATIVE (Neg); NITRITES, URINE NEGATIVE (Neg); OCCULT BLOOD,URINE NEGATIVE (Neg); PROTEIN,URINE TRACE mg/dl (Neg)
[2024-09-15 16:39] LABS: UA COLLECTION TYPE URINAL
[2024-09-15 16:41] LABS: URINE AMPHETAMINE SCREEN POSITIVE (Neg); URINE BARBITUATE SCREEN NEGATIVE (Neg); URINE BENZODIAZEPINES SCREEN NEGATIVE (Neg); URINE CANNABINOID SCREEN POSITIVE (Neg); URINE COCAINE SCREEN NEGATIVE (Neg); URINE METHADONE SCREEN NEGATIVE (Neg); URINE OPIATE SCREEN NEGATIVE (Neg); URINE PHENCYCLIDINE SCREEN NEGATIVE (Neg)
[2024-09-15] MEDS ORDERED: NO HOME MEDS (16:45)
[2024-09-15 16:56] LABS: BACTERIA,URINE FEW /HPF (Neg); SQUAMOUS EPITHELIAL CELL,UR FEW /LPF (FEW); WBC,URINE 0-4 /HPF (0-4)
[2024-09-15 16:57] LABS: MUCUS STRANDS FEW /LPF (Neg)
[2024-09-16 10:58] VITALS: BP 134/76; PULSE 88; RESP 16; TEMP 98.8; O2SAT 98
[2024-09-17] MEDS ORDERED: FERR1TAB17 PO (17:20)
== END 2024-09-16 11:09 | disposition still patient (30) ==
LOC: ER 13:34
DX: R45.851 Suicidal ideations (principal); G43.909 Migraine, unspecified, not intractable, without status migrainosus; F31.9 Bipolar disorder, unspecified; F10.90 Alcohol use, unspecified, uncomplicated; F12.90 Cannabis use, unspecified, uncomplicated; Z20.822 Contact with and (suspected) exposure to COVID-19; Y90.9 Presence of alcohol in blood, level not specified
CPT/HCPCS: 36415; 80048; 80305; 80320; 81001; 85007; 85025; 87811; 99284

== ENCOUNTER 2024-09-17 13:20 | Emergency (ER) | payer MEDICAID ==
[~2024-09-17] VITALS: Ht 170.2 cm; Wt 60.0 kg
[~2024-09-17 13:20] MED LIST changes: +NO HOME MEDS; -PANT40TA54 PO; -QUET-1 PO
[2024-09-17 14:36] LABS: BASOPHILS # (AUTO) 0.1 X10'3 (0-0.2); BASOPHILS % (AUTO) 1.3 % (0-1); EOSINOPHILS # (AUTO) 0.1 X10'3 (0-0.9); EOSINOPHILS % (AUTO) 1.3 % (0-6); HEMATOCRIT 25.5 % (42.0-52.0); HEMOGLOBIN 8.1 g/dl (14.0-17.9); LYMPHOCYTES # (AUTO) 1.7 X10'3 (1.1-4.8); LYMPHOCYTES % (AUTO) 37.8 % (21-51); MEAN CORPUSCULAR HEMOGLOBIN 24.3 PG (27.0-31.0); MEAN CORPUSCULAR VOLUME 76.2 FL (78-98); MEAN PLATELET VOLUME 6.9 FL (7.4-10.4); MONOCYTES # (AUTO) 0.8 X10'3 (0-0.9); MONOCYTES % (AUTO) 16.7 % (2-12); NEUTROPHILS % (AUTO) 42.9 % (42-75); PLATELET COUNT 479 X10'3 (140-440); RED BLOOD COUNT 3.34 X10'6 (4.70-6.10); RED CELL DISTRIBUTION WIDTH 25.8 % (11.5-14.5); WHITE BLOOD COUNT 4.6 X10'3 (4.5-11.0)
[2024-09-17 14:59] LABS: ALANINE AMINOTRANSFERASE 24 U/L (12-78); ALBUMIN 2.4 G/DL (3.4-5.0); ALBUMIN/GLOBULIN RATIO 0.5 (1.1-1.5); ALKALINE PHOSPHATASE 61 IU/L (46-116); ANION GAP 6 (8-16); ASPARTATE AMINO TRANSFERASE 20 U/L (10-37); BILIRUBIN,TOTAL 0.2 MG/DL (0.1-1.0); BLOOD UREA NITROGEN 13 MG/DL (7-18); BUN/CREATININE RATIO 16.5 (10.0-20.0); CALCIUM 8.4 MG/DL (8.5-10.1); CHLORIDE 108 MMOL/L (99-107); CREATININE 0.79 MG/DL (0.60-1.10); GLUCOSE 90 MG/DL (70-104); POTASSIUM 3.3 MMOL/L (3.5-5.1); SODIUM 143 MMOL/L (135-145); TOTAL CARBON DIOXIDE 28.8 MMOL/L (24-32); TOTAL PROTEIN 7.1 G/DL (6.4-8.2); eCRCL 90 ML/MIN; eGFR > 90 ML/MIN
[2024-09-17 16:26] LABS: % IRON SATURATION 3 % (11-46); IRON 10 UG/DL (53-167); TOTAL IRON BINDING CAPACITY 295 UG/DL (259-388)
[2024-09-17 16:33] LABS: FERRITIN 43 NG/ML (26-388)
[2024-09-17] MEDS ORDERED: FERR1TAB17 PO (17:20)
[2024-09-17] MEDS: potassium Cl 20 mEq SR tablet PO STA (17:54)
[2024-09-17 18:00] VITALS: BP 130/90; PULSE 66; RESP 18; TEMP 97.6; O2SAT 99
== END 2024-09-17 18:03 | disposition home or self-care (01) ==
LOC: ER 13:20
DX: D50.9 Iron deficiency anemia, unspecified (principal); G43.909 Migraine, unspecified, not intractable, without status migrainosus; F31.9 Bipolar disorder, unspecified; F12.90 Cannabis use, unspecified, uncomplicated
CPT/HCPCS: 36415; 80053; 82728; 83540; 83550; 85025; 93005; 99285

== ENCOUNTER 2024-09-22 15:45 | Inpatient (IN) | payer MEDICAID ==
[~2024-09-22] VITALS: Ht 170.2 cm; Wt 55.0 kg
[~2024-09-22 15:45] MED LIST changes: +FERR1TAB17 PO
[2024-09-22 16:46] LABS: BASOPHILS % (AUTO) 0.2 % (0-1); EOSINOPHILS % (AUTO) 0 % (0-6); LYMPHOCYTES # (AUTO) 2.2 X10'3 (1.1-4.8); LYMPHOCYTES % (AUTO) 15.8 % (21-51); MEAN CORPUSCULAR HEMOGLOBIN 23.1 PG (27.0-31.0); MEAN CORPUSCULAR HGB CONC 30.8 g/dL (33.0-36.5); MEAN CORPUSCULAR VOLUME 74.9 FL (78-98); MEAN PLATELET VOLUME 6.8 FL (7.4-10.4); MONOCYTES # (AUTO) 1.3 X10'3 (0-0.9); MONOCYTES % (AUTO) 9.2 % (2-12); NEUTROPHILS # (AUTO) 10.2 X10'3 (1.8-7.7); NEUTROPHILS % (AUTO) 74.8 % (42-75); PLATELET COUNT 449 X10'3 (140-440); RED BLOOD COUNT 2.65 X10'6 (4.70-6.10); RED CELL DISTRIBUTION WIDTH 24.7 % (11.5-14.5); WHITE BLOOD COUNT 13.6 X10'3 (4.5-11.0)
[2024-09-22 16:50] LABS: HEMATOCRIT 19.8 % (42.0-52.0); HEMOGLOBIN 6.1 g/dl (14.0-17.9)
[2024-09-22 17:07] LABS: ANISOCYTOSIS 3+; HYPOCHROMASIA 1+; MICROCYTOSIS 1+; PLATELET ESTIMATE INCREASED
[2024-09-22 17:08] LABS: ELLIPTOCYTES FEW; TEAR DROP CELLS FEW
[2024-09-22 17:38] LABS: ALANINE AMINOTRANSFERASE 24 U/L (12-78); ALBUMIN 2.2 G/DL (3.4-5.0); ALBUMIN/GLOBULIN RATIO 0.5 (1.1-1.5); ALKALINE PHOSPHATASE 45 IU/L (46-116); ANION GAP 6 (8-16); ASPARTATE AMINO TRANSFERASE 12 U/L (10-37); BILIRUBIN,TOTAL 0.3 MG/DL (0.1-1.0); BLOOD UREA NITROGEN 40 MG/DL (7-18); CALCIUM 8.2 MG/DL (8.5-10.1); CHLORIDE 103 MMOL/L (99-107); CREATININE 1.08 MG/DL (0.60-1.10); GLUCOSE 100 MG/DL (70-104); LIPASE 30 U/L (16-77); POTASSIUM 3.6 MMOL/L (3.5-5.1); SODIUM 139 MMOL/L (135-145); TOTAL CARBON DIOXIDE 30.2 MMOL/L (24-32); TOTAL PROTEIN 6.3 G/DL (6.4-8.2); eCRCL 60 ML/MIN; eGFR 71 ML/MIN
[2024-09-22] MEDS: normal saline 1000ml 1,000 ML IV SCH (17:47)
[2024-09-22 18:54] LABS: CREATINE KINASE 21 U/L (39-308)
[2024-09-22] MEDS ORDERED: iohexol 300mg/ml 100ml inj. ONE (19:02)
[2024-09-22] MEDS: pantoprazole 40 MG vial IV STA (19:41)
[2024-09-22 20:04] LABS: BILIRUBIN,URINE NEGATIVE (Neg); CLARITY,URINE CLEAR (Clear); COLOR,URINE YELLOW (Yellow); GLUCOSE, URINE NEGATIVE (Neg); KETONES,URINE NEGATIVE (Neg); LEUKOCYTE ESTERASE ,URINE NEGATIVE (Neg); NITRITES, URINE NEGATIVE (Neg); OCCULT BLOOD,URINE NEGATIVE (Neg); PROTEIN,URINE NEGATIVE (Neg)
[2024-09-22 20:08] LABS: UA COLLECTION TYPE CLN CATCH MIDSTREAM
[2024-09-22] MEDS ORDERED: potassium Cl 20 mEq SR tablet PO PRN (21:10)
[2024-09-22] MEDS ORDERED: magnesium hydroxide 30ml (MOM) UD suspension PO PRN (21:10)
[2024-09-22] MEDS ORDERED: HYDROmorphone inj. 0.5 MG/0.5 ML DISP.SYRIN IV PRN (21:10)
[2024-09-22] MEDS ORDERED: magnesium Cl slow-release 64mg tablet PO PRN (21:10)
[2024-09-22] MEDS ORDERED: magnesium sulf-water 4G/100mL 100 ML IV PRN (21:10)
[2024-09-22] MEDS ORDERED: magnesium sulf-water 2g/50mL 50 ML IV PRN (21:10)
[2024-09-22] MEDS ORDERED: potassium Cl 40MEQ/1/2NS 520ml 520 ML IV PRN (21:10)
[2024-09-22] MEDS ORDERED: morphine 2 MG/ML inj. syringe IV PRN ×2 (21:10)
[2024-09-22] MEDS ORDERED: acetaminophen 325mg tablet PO PRN (21:10)
[2024-09-22] MEDS ORDERED: ondansetron/PF 4mg/2ml inj IV PRN (21:10)
[2024-09-22] MEDS ORDERED: mag hydrox/Alum hydrox/simeth 30ml oral suspension PO PRN (21:10)
[2024-09-22] MEDS: morphine 2 MG/ML inj. syringe IV ONE (21:13)
[2024-09-22 21:51] LABS: HEMOGLOBIN A1C 5.4 % (4.5-6.2)
[2024-09-22 21:58] LABS: FERRITIN 11 NG/ML (26-388)
[2024-09-22 22:26] LABS: % IRON SATURATION 2 % (11-46); IRON 6 UG/DL (53-167); TOTAL IRON BINDING CAPACITY 264 UG/DL (259-388)
[2024-09-22 22:27] VITALS: BP 92/52; PULSE 105; RESP 23; TEMP 99.2
[2024-09-22 22:57] VITALS: BP 92/59; PULSE 102; RESP 19; TEMP 99
[2024-09-22] MEDS: pantoprazole 40MG/NS 100ML BAG 100 ML IV SCH (23:33)
[2024-09-22] MEDS: pantoprazole 40 MG vial IV ONE (23:35)
[2024-09-23] VITALS (21 sets, daily range): BP systolic 101–133; BP diastolic 66–89; PULSE 18–100; RESP 15–26; TEMP 98.4–100.3; O2SAT 96–100
[2024-09-23] MEDS: diphenhydrAMINE 25mg capsule PO ONE (00:49)
[2024-09-23] MEDS: iron sucrose complex injection 500 MG in normal saline 250ml IV soln 250 ML IV ONE (00:57)
[2024-09-23] MEDS ORDERED: QUET-1 PO (01:32)
[2024-09-23 01:39] LABS: MEAN CORPUSCULAR HGB CONC 30.7 g/dL (33.0-36.5); MEAN CORPUSCULAR VOLUME 78.4 FL (78-98); MEAN PLATELET VOLUME 7.3 FL (7.4-10.4); PLATELET COUNT 376 X10'3 (140-440); RED BLOOD COUNT 2.65 X10'6 (4.70-6.10); WHITE BLOOD COUNT 14.3 X10'3 (4.5-11.0)
[2024-09-23 01:41] LABS: HEMATOCRIT 20.8 % (42.0-52.0); HEMOGLOBIN 6.4 g/dl (14.0-17.9)
[2024-09-23] MEDS: normal saline 1000ml 1,000 ML IV SCH (04:06)
[2024-09-23] MEDS: K and/or MAG REPLACEMENT MC SCH (07:09)
[2024-09-23] MEDS: docusate sod 100mg capsule PO SCH (07:09)
[2024-09-23 07:32] LABS: ALANINE AMINOTRANSFERASE 15 U/L (12-78); ALBUMIN 1.9 G/DL (3.4-5.0); ALBUMIN/GLOBULIN RATIO 0.5 (1.1-1.5); ALKALINE PHOSPHATASE 41 IU/L (46-116); ANION GAP 5 (8-16); ASPARTATE AMINO TRANSFERASE 12 U/L (10-37); BILIRUBIN,TOTAL 0.7 MG/DL (0.1-1.0); BLOOD UREA NITROGEN 22 MG/DL (7-18); BUN/CREATININE RATIO 28.9 (10.0-20.0); CALCIUM 7.5 MG/DL (8.5-10.1); CHLORIDE 107 MMOL/L (99-107); CHOL/HDL RATIO 2.3 (0.00-4.99); CHOLESTEROL 84 MG/DL (0-200); CREATININE 0.76 MG/DL (0.60-1.10); GLUCOSE 98 MG/DL (70-104); HDL CHOLESTEROL 37 MG/DL (35-60); HEMOGLOBIN 7.7 g/dl (14.0-17.9); LDL CHOLESTEROL 42 MG/DL (50-100); MAGNESIUM 1.9 MG/DL (1.5-2.4); POTASSIUM 3.4 MMOL/L (3.5-5.1); SODIUM 139 MMOL/L (135-145); TOTAL CARBON DIOXIDE 26.8 MMOL/L (24-32); TOTAL PROTEIN 5.6 G/DL (6.4-8.2); TRIGLYCERIDES 59 MG/DL (20-135); eCRCL 85 ML/MIN; eGFR > 90 ML/MIN
[2024-09-23 07:34] LABS: BASOPHILS % (AUTO) 0.3 % (0-1); EOSINOPHILS % (AUTO) 0.1 % (0-6); HEMATOCRIT 24.3 % (42.0-52.0); LYMPHOCYTES # (AUTO) 1.5 X10'3 (1.1-4.8); LYMPHOCYTES % (AUTO) 11.5 % (21-51); MEAN CORPUSCULAR HEMOGLOBIN 25.4 PG (27.0-31.0); MEAN CORPUSCULAR HGB CONC 31.7 g/dL (33.0-36.5); MEAN CORPUSCULAR VOLUME 80.4 FL (78-98); MEAN PLATELET VOLUME 7.3 FL (7.4-10.4); MONOCYTES # (AUTO) 1.3 X10'3 (0-0.9); MONOCYTES % (AUTO) 10.6 % (2-12); NEUTROPHILS # (AUTO) 9.9 X10'3 (1.8-7.7); NEUTROPHILS % (AUTO) 77.5 % (42-75); PLATELET COUNT 331 X10'3 (140-440); RED BLOOD COUNT 3.03 X10'6 (4.70-6.10); RED CELL DISTRIBUTION WIDTH 23.3 % (11.5-14.5); WHITE BLOOD COUNT 12.8 X10'3 (4.5-11.0)
[2024-09-23 09:38] LABS: MEAN CORPUSCULAR HEMOGLOBIN 25.4 PG (27.0-31.0); MEAN CORPUSCULAR HGB CONC 31.6 g/dL (33.0-36.5); MEAN CORPUSCULAR VOLUME 80.3 FL (78-98); MEAN PLATELET VOLUME 6.9 FL (7.4-10.4); PLATELET COUNT 296 X10'3 (140-440); RED BLOOD COUNT 2.73 X10'6 (4.70-6.10); RED CELL DISTRIBUTION WIDTH 22.8 % (11.5-14.5)
[2024-09-23 09:45] LABS: HEMATOCRIT 21.9 % (42.0-52.0); HEMOGLOBIN 6.9 g/dl (14.0-17.9)
[2024-09-23 12:27] LABS: URINE AMPHETAMINE SCREEN POSITIVE (Neg); URINE BARBITUATE SCREEN NEGATIVE (Neg); URINE BENZODIAZEPINES SCREEN NEGATIVE (Neg); URINE CANNABINOID SCREEN POSITIVE (Neg); URINE COCAINE SCREEN NEGATIVE (Neg); URINE METHADONE SCREEN NEGATIVE (Neg); URINE OPIATE SCREEN NEGATIVE (Neg); URINE PHENCYCLIDINE SCREEN NEGATIVE (Neg)
[2024-09-23] MEDS ORDERED: MIDAZolam 1 MG/ML 5ML VIAL ONE (15:55)
[2024-09-23] MEDS ORDERED: fentaNYL/PF 50MCG/1 ML 2ML syringe ONE (15:55)
[2024-09-23] MEDS ORDERED: LIDOcaine 2% Viscous 15ml cup ONE (15:56)
[2024-09-23] MEDS ORDERED: simethicone 40mg/0.6ml oral drops 30ml ONE (16:04)
[2024-09-23 16:41] LABS: HEMATOCRIT 25.6 % (42.0-52.0); HEMOGLOBIN 8.2 g/dl (14.0-17.9); MEAN CORPUSCULAR HEMOGLOBIN 26.1 PG (27.0-31.0); MEAN CORPUSCULAR HGB CONC 32.1 g/dL (33.0-36.5); MEAN CORPUSCULAR VOLUME 81.3 FL (78-98); MEAN PLATELET VOLUME 7.1 FL (7.4-10.4); PLATELET COUNT 307 X10'3 (140-440); RED BLOOD COUNT 3.15 X10'6 (4.70-6.10); RED CELL DISTRIBUTION WIDTH 22.1 % (11.5-14.5); WHITE BLOOD COUNT 11.6 X10'3 (4.5-11.0)
[2024-09-23 21:30] LABS: HEMATOCRIT 23.8 % (42.0-52.0); MEAN CORPUSCULAR HEMOGLOBIN 27.5 PG (27.0-31.0); MEAN CORPUSCULAR HGB CONC 33.8 g/dL (33.0-36.5); MEAN CORPUSCULAR VOLUME 81.3 FL (78-98); MEAN PLATELET VOLUME 7.2 FL (7.4-10.4); PLATELET COUNT 266 X10'3 (140-440); RED BLOOD COUNT 2.93 X10'6 (4.70-6.10); RED CELL DISTRIBUTION WIDTH 21.8 % (11.5-14.5); WHITE BLOOD COUNT 10.9 X10'3 (4.5-11.0)
[2024-09-23] MEDS: quetiapine 100mg tablet PO SCH (22:27)
[2024-09-24 06:00] VITALS: BP 101/68; PULSE 83; RESP 21; TEMP 98.5; O2SAT 100
[2024-09-24 08:25] VITALS: RESP 21; O2SAT 100
[2024-09-24 08:38] LABS: HEMATOCRIT 25.2 % (42.0-52.0); HEMOGLOBIN 8.3 g/dl (14.0-17.9); MEAN CORPUSCULAR HEMOGLOBIN 26.8 PG (27.0-31.0); MEAN CORPUSCULAR HGB CONC 33.1 g/dL (33.0-36.5); MEAN CORPUSCULAR VOLUME 81.1 FL (78-98); MEAN PLATELET VOLUME 7.4 FL (7.4-10.4); PLATELET COUNT 307 X10'3 (140-440); RED CELL DISTRIBUTION WIDTH 21.5 % (11.5-14.5); WHITE BLOOD COUNT 8.3 X10'3 (4.5-11.0)
[2024-09-24 09:03] LABS: ALANINE AMINOTRANSFERASE 13 U/L (12-78); ALBUMIN 1.8 G/DL (3.4-5.0); ALBUMIN/GLOBULIN RATIO 0.5 (1.1-1.5); ALKALINE PHOSPHATASE 42 IU/L (46-116); ANION GAP 6 (8-16); ASPARTATE AMINO TRANSFERASE 11 U/L (10-37); BILIRUBIN,TOTAL 0.5 MG/DL (0.1-1.0); BLOOD UREA NITROGEN 10 MG/DL (7-18); BUN/CREATININE RATIO 16.7 (10.0-20.0); CALCIUM 7.9 MG/DL (8.5-10.1); CHLORIDE 112 MMOL/L (99-107); GLUCOSE 80 MG/DL (70-104); MAGNESIUM 1.8 MG/DL (1.5-2.4); POTASSIUM 3.2 MMOL/L (3.5-5.1); SODIUM 144 MMOL/L (135-145); TOTAL CARBON DIOXIDE 25.6 MMOL/L (24-32); TOTAL PROTEIN 5.5 G/DL (6.4-8.2); eCRCL 108 ML/MIN; eGFR > 90 ML/MIN
[2024-09-24] MEDS: potassium Cl 20 mEq SR tablet PO PRN (10:35)
[2024-09-24] MEDS ORDERED: FERR325T28 PO (10:41)
[2024-09-24] MEDS ORDERED: PANT-47 PO (10:41)
[2024-09-24 11:00] VITALS: BP 105/65; PULSE 87; RESP 16; TEMP 98; O2SAT 99
[2024-09-24] MEDS: iron sucrose complex injection 500 MG in normal saline 250ml IV soln 250 ML IV ONE (11:33)
[2024-09-24 14:19] LABS: HEMATOCRIT 25.1 % (42.0-52.0); HEMOGLOBIN 8.1 g/dl (14.0-17.9); MEAN CORPUSCULAR HEMOGLOBIN 26.4 PG (27.0-31.0); MEAN CORPUSCULAR HGB CONC 32.4 g/dL (33.0-36.5); MEAN CORPUSCULAR VOLUME 81.6 FL (78-98); MEAN PLATELET VOLUME 7.7 FL (7.4-10.4); PLATELET COUNT 314 X10'3 (140-440); RED BLOOD COUNT 3.07 X10'6 (4.70-6.10); RED CELL DISTRIBUTION WIDTH 21.7 % (11.5-14.5); WHITE BLOOD COUNT 10.3 X10'3 (4.5-11.0)
[2024-09-24] MEDS ORDERED: POTA-207 PO (20:16)
[2024-09-25] MEDS ORDERED: PANT40TA54 PO (12:12)
[2024-09-25] MEDS ORDERED: FERR325T28 PO (12:13)
== END 2024-09-24 14:39 | disposition home or self-care (01) | DRG 242 ==
LOC: ER 15:46 → ED HOLD 21:20 → PCU 3S 09-23 19:25
PROVIDERS: ADMIT Internal Medicine Pulmonary Disease; ATTEND Family Medicine
PROC: 30233N1 Transfusion of Nonautologous Red Blood Cells into Peripheral Vein, Percutaneous Approach (ICD-10-PCS; principal; 2024-09-22)
PROC: BW211ZZ Computerized Tomography (CT Scan) of Abdomen and Pelvis using Low Osmolar Contrast (ICD-10-PCS; 2024-09-22)
PROC: 0DB58ZX Excision of Esophagus, Via Natural or Artificial Opening Endoscopic, Diagnostic (ICD-10-PCS; 2024-09-23)
PROC: 0DB78ZX Excision of Stomach, Pylorus, Via Natural or Artificial Opening Endoscopic, Diagnostic (ICD-10-PCS; 2024-09-23)
DX: K22.11 Ulcer of esophagus with bleeding (principal); D50.9 Iron deficiency anemia, unspecified; F31.9 Bipolar disorder, unspecified; F15.90 Other stimulant use, unspecified, uncomplicated; E87.6 Hypokalemia; G43.909 Migraine, unspecified, not intractable, without status migrainosus; G89.29 Other chronic pain; K21.00 Gastro-esophageal reflux disease with esophagitis, without bleeding; M54.9 Dorsalgia, unspecified; K44.9 Diaphragmatic hernia without obstruction or gangrene; K29.80 Duodenitis without bleeding; K29.70 Gastritis, unspecified, without bleeding; Z79.899 Other long term (current) drug therapy
CPT/HCPCS: 36415; 36430; 43239; 70450; 71260; 72125; 74177; 80053; 80061; 80305; 80320; 81003; 82550; 82728; 83036; 83540; 83550; 83605; 83690; 83735; 85008; 85025; 85027; 86885; 86900; 86901; 86920; 87081; 93306; 96374; 96375; 99152; 99285; A4620; A6449; G0378; J1756; J2250; J2270; J2470; J3010; J7030; J7040; J7050; P9016; Q0163; Q9967

== ENCOUNTER 2024-09-25 07:35 | Emergency (ER) | payer MEDICAID ==
[~2024-09-25] VITALS: Ht 170.2 cm; Wt 59.1 kg
[~2024-09-25 07:35] MED LIST changes: -FERR1TAB17 PO; +FERR325T28 PO; -NO HOME MEDS; +PANT-47 PO; +POTA-207 PO; +QUET-1 PO
[2024-09-25 09:00] LABS: BASOPHILS % (AUTO) 0.7 % (0-1); EOSINOPHILS # (AUTO) 0.1 X10'3 (0-0.9); EOSINOPHILS % (AUTO) 1.3 % (0-6); HEMATOCRIT 25.1 % (42.0-52.0); HEMOGLOBIN 8.3 g/dl (14.0-17.9); LYMPHOCYTES # (AUTO) 1.4 X10'3 (1.1-4.8); MEAN CORPUSCULAR HGB CONC 33.2 g/dL (33.0-36.5); MEAN CORPUSCULAR VOLUME 81.5 FL (78-98); MEAN PLATELET VOLUME 7.2 FL (7.4-10.4); MONOCYTES # (AUTO) 0.7 X10'3 (0-0.9); MONOCYTES % (AUTO) 9.8 % (2-12); NEUTROPHILS # (AUTO) 5.3 X10'3 (1.8-7.7); NEUTROPHILS % (AUTO) 69.2 % (42-75); PLATELET COUNT 303 X10'3 (140-440); RED BLOOD COUNT 3.09 X10'6 (4.70-6.10); RED CELL DISTRIBUTION WIDTH 22.3 % (11.5-14.5); WHITE BLOOD COUNT 7.6 X10'3 (4.5-11.0)
[2024-09-25 09:12] LABS: ALANINE AMINOTRANSFERASE 19 U/L (12-78); ALBUMIN/GLOBULIN RATIO 0.5 (1.1-1.5); ALKALINE PHOSPHATASE 46 IU/L (46-116); ANION GAP 5 (8-16); ASPARTATE AMINO TRANSFERASE 18 U/L (10-37); BILIRUBIN,TOTAL 0.3 MG/DL (0.1-1.0); BLOOD UREA NITROGEN 5 MG/DL (7-18); CALCIUM 7.8 MG/DL (8.5-10.1); CHLORIDE 108 MMOL/L (99-107); CREATININE 0.71 MG/DL (0.60-1.10); GLUCOSE 119 MG/DL (70-104); POTASSIUM 3.2 MMOL/L (3.5-5.1); SODIUM 139 MMOL/L (135-145); TOTAL PROTEIN 6.2 G/DL (6.4-8.2); eCRCL 98 ML/MIN; eGFR > 90 ML/MIN
[2024-09-25 09:36] LABS: ANISOCYTOSIS 3+; PLATELET ESTIMATE NORMAL
[2024-09-25 09:37] LABS: BURR CELLS FEW; ELLIPTOCYTES FEW
[2024-09-25] MEDS ORDERED: potassium chloride 8mEq ER tablet PO STA (09:46)
[2024-09-25 09:49] LABS: BILIRUBIN,URINE NEGATIVE (Neg); CLARITY,URINE CLEAR (Clear); COLOR,URINE YELLOW (Yellow); GLUCOSE, URINE NEGATIVE (Neg); KETONES,URINE NEGATIVE (Neg); LEUKOCYTE ESTERASE ,URINE NEGATIVE (Neg); NITRITES, URINE NEGATIVE (Neg); OCCULT BLOOD,URINE NEGATIVE (Neg); PROTEIN,URINE NEGATIVE (Neg)
[2024-09-25 09:55] LABS: URINE AMPHETAMINE SCREEN NEGATIVE (Neg); URINE BARBITUATE SCREEN NEGATIVE (Neg); URINE BENZODIAZEPINES SCREEN NEGATIVE (Neg); URINE CANNABINOID SCREEN POSITIVE (Neg); URINE COCAINE SCREEN NEGATIVE (Neg); URINE METHADONE SCREEN NEGATIVE (Neg); URINE OPIATE SCREEN NEGATIVE (Neg); URINE PHENCYCLIDINE SCREEN NEGATIVE (Neg)
[2024-09-25 09:56] LABS: UA COLLECTION TYPE CLN CATCH MIDSTREAM
[2024-09-25 10:12] LABS: ALBUMIN 2.1 G/DL (3.4-5.0); ANION GAP 4 (8-16); BLOOD UREA NITROGEN 6 MG/DL (7-18); BUN/CREATININE RATIO 8.3 (10.0-20.0); CHLORIDE 108 MMOL/L (99-107); CREATININE 0.72 MG/DL (0.60-1.10); GLUCOSE 115 MG/DL (70-104); POTASSIUM 3.5 MMOL/L (3.5-5.1); SODIUM 140 MMOL/L (135-145); THYROID STIMULATING HORMONE 1.59 ulU/ml (0.34-4.50); TOTAL CARBON DIOXIDE 28.4 MMOL/L (24-32); eCRCL 97 ML/MIN; eGFR > 90 ML/MIN
[2024-09-25 10:18] LABS: ETHANOL < 10 MG/DL (<10)
[2024-09-25 10:59] VITALS: BP 142/90; PULSE 76; TEMP 98.1; O2SAT 100
[2024-09-25 11:52] VITALS: RESP 14
[2024-09-25] MEDS ORDERED: PANT40TA54 PO (12:12)
[2024-09-25] MEDS ORDERED: FERR325T28 PO (12:13)
[2024-09-25] MEDS: potassium Cl 20 mEq SR tablet PO STA (12:50)
[2024-09-25] MEDS: acetaminophen 325mg tablet PO ONE (12:50)
== END 2024-09-25 16:27 | disposition home or self-care (01) ==
LOC: ER 07:36
DX: R45.851 Suicidal ideations (principal); G89.29 Other chronic pain; M54.9 Dorsalgia, unspecified; G43.909 Migraine, unspecified, not intractable, without status migrainosus; F31.9 Bipolar disorder, unspecified; F12.90 Cannabis use, unspecified, uncomplicated; Z20.822 Contact with and (suspected) exposure to COVID-19; Z79.899 Other long term (current) drug therapy; Z59.00 Homelessness unspecified
CPT/HCPCS: 36415; 80048; 80053; 80305; 80320; 81003; 84443; 85008; 85025; 87502; 87503; 87811; 99284

== ENCOUNTER 2024-09-26 01:35 | Emergency (ER) | payer MEDICAID ==
[~2024-09-26] VITALS: Ht 177.8 cm; Wt 59.1 kg
[~2024-09-26 01:35] MED LIST changes: +PANT40TA54 PO
[2024-09-26 01:53] VITALS: TEMP 98
[2024-09-26] MEDS: ketorolac trometh 15mg/ml vial 15 MG/ML ML IM ONE (02:46)
[2024-09-26] MEDS: mupirocin 2% ointment 22GM TP STA (02:46)
[2024-09-26 03:01] VITALS: BP 113/75; PULSE 89; RESP 16; O2SAT 94
== END 2024-09-26 03:04 | disposition home or self-care (01) ==
LOC: ER 01:36
DX: S00.01XA Abrasion of scalp, initial encounter (principal); M54.2 Cervicalgia; G89.29 Other chronic pain; M54.9 Dorsalgia, unspecified; Z79.899 Other long term (current) drug therapy; X58.XXXA Exposure to other specified factors, initial encounter; Y93.89 Activity, other specified; Y92.89 Other specified places as the place of occurrence of the external cause; Y99.8 Other external cause status
CPT/HCPCS: 96372; 99284; J1885

== ENCOUNTER 2024-09-27 18:48 | Emergency (ER) | payer MEDICAID ==
[~2024-09-27] VITALS: Ht 177.8 cm; Wt 61.4 kg
[~2024-09-27 18:48] MED LIST changes: -PANT-47 PO; -POTA-207 PO
[2024-09-27] MEDS: ondansetron 4mg rapidly disintigrating tab PO ONE (20:24)
[2024-09-27] MEDS: famotidine 20mg tablet PO ONE (20:24)
[2024-09-27] MEDS: mag hydrox/Alum hydrox/simeth 30ml oral suspension PO ONE (20:24)
[2024-09-27 20:43] LABS: BASOPHILS # (AUTO) 0.1 X10'3 (0-0.2); BASOPHILS % (AUTO) 0.9 % (0-1); EOSINOPHILS # (AUTO) 0.2 X10'3 (0-0.9); EOSINOPHILS % (AUTO) 1.7 % (0-6); HEMATOCRIT 30.4 % (42.0-52.0); HEMOGLOBIN 9.9 g/dl (14.0-17.9); LYMPHOCYTES # (AUTO) 1.6 X10'3 (1.1-4.8); LYMPHOCYTES % (AUTO) 17.2 % (21-51); MEAN CORPUSCULAR HEMOGLOBIN 27.5 PG (27.0-31.0); MEAN CORPUSCULAR HGB CONC 32.6 g/dL (33.0-36.5); MEAN CORPUSCULAR VOLUME 84.2 FL (78-98); MEAN PLATELET VOLUME 6.7 FL (7.4-10.4); MONOCYTES # (AUTO) 1.3 X10'3 (0-0.9); MONOCYTES % (AUTO) 13.8 % (2-12); NEUTROPHILS # (AUTO) 6.3 X10'3 (1.8-7.7); NEUTROPHILS % (AUTO) 66.4 % (42-75); PLATELET COUNT 502 X10'3 (140-440); RED BLOOD COUNT 3.62 X10'6 (4.70-6.10); RED CELL DISTRIBUTION WIDTH 24.1 % (11.5-14.5); WHITE BLOOD COUNT 9.6 X10'3 (4.5-11.0)
[2024-09-27 21:01] LABS: ALANINE AMINOTRANSFERASE 25 U/L (12-78); ALBUMIN 2.5 G/DL (3.4-5.0); ALBUMIN/GLOBULIN RATIO 0.6 (1.1-1.5); ALKALINE PHOSPHATASE 60 IU/L (46-116); ANION GAP 6 (8-16); ASPARTATE AMINO TRANSFERASE 18 U/L (10-37); BILIRUBIN,TOTAL 0.4 MG/DL (0.1-1.0); BLOOD UREA NITROGEN 13 MG/DL (7-18); BUN/CREATININE RATIO 17.3 (10.0-20.0); CALCIUM 8.5 MG/DL (8.5-10.1); CHLORIDE 103 MMOL/L (99-107); CREATININE 0.75 MG/DL (0.60-1.10); ETHANOL < 10 MG/DL (<10); GLUCOSE 80 MG/DL (70-104); LIPASE 172 U/L (16-77); POTASSIUM 3.4 MMOL/L (3.5-5.1); SODIUM 141 MMOL/L (135-145); TOTAL CARBON DIOXIDE 31.8 MMOL/L (24-32); eCRCL 97 ML/MIN; eGFR > 90 ML/MIN
[2024-09-27 21:26] LABS: ANISOCYTOSIS 2+; PLATELET ESTIMATE INCREASED; SCHISTOCYTES 1+
[2024-09-27] MEDS ORDERED: pantoprazole 40mg Tablet.DR PO ONE (23:15)
[2024-09-27 23:57] LABS: BILIRUBIN,URINE NEGATIVE (Neg); CLARITY,URINE CLEAR (Clear); COLOR,URINE YELLOW (Yellow); GLUCOSE, URINE NEGATIVE (Neg); KETONES,URINE NEGATIVE (Neg); LEUKOCYTE ESTERASE ,URINE NEGATIVE (Neg); NITRITES, URINE NEGATIVE (Neg); OCCULT BLOOD,URINE NEGATIVE (Neg); PH,URINE 6.5 (4.8-8.0); PROTEIN,URINE NEGATIVE (Neg)
[2024-09-28 00:17] LABS: UA COLLECTION TYPE VOIDED
[2024-09-28] MEDS: pantoprazole 40 MG vial IV ONE (00:20)
[2024-09-28] MEDS: normal saline 1000ML IV soln IVB ONE (00:21)
[2024-09-28 00:29] LABS: URINE AMPHETAMINE SCREEN POSITIVE (Neg); URINE BARBITUATE SCREEN NEGATIVE (Neg); URINE BENZODIAZEPINES SCREEN NEGATIVE (Neg); URINE CANNABINOID SCREEN POSITIVE (Neg); URINE COCAINE SCREEN NEGATIVE (Neg); URINE METHADONE SCREEN NEGATIVE (Neg); URINE OPIATE SCREEN POSITIVE (Neg); URINE PHENCYCLIDINE SCREEN NEGATIVE (Neg)
[2024-09-28] MEDS: PENICILLIN G BENZATHINE 2,400,000 UNIT/4 ML SYRINGE IM ONE (01:29)
[2024-09-28] MEDS: bacitracin 15gm ointment TP ONE (01:29)
[2024-09-28] MEDS: potassium Cl 20 mEq SR tablet PO STA (04:33)
[2024-09-28] MEDS ORDERED: ferrous sulfate 325mg tablet PO SCH (08:00)
[2024-09-28] MEDS: pantoprazole 40mg Tablet.DR PO SCH (08:18)
[2024-09-28] MEDS: ferrous sulfate 325mg tablet PO SCH (08:18)
[2024-09-28] MEDS: quetiapine 100mg tablet PO SCH (08:18)
[2024-09-28] MEDS: acetaminophen 325mg tablet PO PRN (08:19)
[2024-09-28 10:51] VITALS: BP 134/89; PULSE 70; RESP 16; TEMP 98.6; O2SAT 97
[2024-09-28] MEDS ORDERED: MELO-102 PO (22:23)
[2024-09-28] MEDS ORDERED: ACET-1025 PO (22:23)
== END 2024-09-28 10:54 | disposition home or self-care (01) ==
LOC: ER 18:49
DX: R45.851 Suicidal ideations (principal); F12.90 Cannabis use, unspecified, uncomplicated; F15.10 Other stimulant abuse, uncomplicated; Z20.822 Contact with and (suspected) exposure to COVID-19
CPT/HCPCS: 36415; 80053; 80305; 80320; 81003; 83690; 85008; 85025; 87811; 96365; 96366; 96372; 99284; J0561; J2470; J7030; A6258

== ENCOUNTER 2024-09-28 20:48 | Emergency (ER) | payer MEDICAID ==
[~2024-09-28] VITALS: Ht 167.6 cm; Wt 65.9 kg
[2024-09-28 20:51] VITALS: TEMP 98
[2024-09-28] MEDS ORDERED: ACET-1025 PO (22:23)
[2024-09-28] MEDS ORDERED: MELO-102 PO (22:23)
[2024-09-28] MEDS: ketorolac trometh 30MG/ML vial 30 MG/ML VIAL IM STA (22:32)
[2024-09-28 22:36] VITALS: PULSE 78; RESP 18; O2SAT 98
== END 2024-09-28 22:38 | disposition home or self-care (01) ==
LOC: ER 20:49
DX: M54.50 Low back pain, unspecified (principal); G43.909 Migraine, unspecified, not intractable, without status migrainosus; F31.9 Bipolar disorder, unspecified; F12.90 Cannabis use, unspecified, uncomplicated; F10.90 Alcohol use, unspecified, uncomplicated; Y90.9 Presence of alcohol in blood, level not specified
CPT/HCPCS: 96372; 99283; J1885

== ENCOUNTER 2024-10-03 17:32 | Emergency (ER) | payer MEDICAID ==
[~2024-10-03] VITALS: Ht 162.6 cm; Wt 54.0 kg
[~2024-10-03 17:32] MED LIST changes: +ACET-1025 PO; +MELO-102 PO
[2024-10-03 17:37] VITALS: TEMP 98
[2024-10-03 18:13] LABS: BASOPHILS # (AUTO) 0.1 X10'3 (0-0.2); BASOPHILS % (AUTO) 1.8 % (0-1); EOSINOPHILS # (AUTO) 0.2 X10'3 (0-0.9); EOSINOPHILS % (AUTO) 3.5 % (0-6); HEMATOCRIT 30.3 % (42.0-52.0); HEMOGLOBIN 9.5 g/dl (14.0-17.9); LYMPHOCYTES # (AUTO) 2.2 X10'3 (1.1-4.8); MEAN CORPUSCULAR HEMOGLOBIN 27.3 PG (27.0-31.0); MEAN CORPUSCULAR HGB CONC 31.2 g/dL (33.0-36.5); MEAN CORPUSCULAR VOLUME 87.6 FL (78-98); MEAN PLATELET VOLUME 6.9 FL (7.4-10.4); MONOCYTES # (AUTO) 0.6 X10'3 (0-0.9); MONOCYTES % (AUTO) 11.5 % (2-12); NEUTROPHILS # (AUTO) 2.1 X10'3 (1.8-7.7); NEUTROPHILS % (AUTO) 40.2 % (42-75); PLATELET COUNT 432 X10'3 (140-440); RED BLOOD COUNT 3.46 X10'6 (4.70-6.10); RED CELL DISTRIBUTION WIDTH 25.3 % (11.5-14.5); WHITE BLOOD COUNT 5.1 X10'3 (4.5-11.0)
[2024-10-03 18:37] LABS: ALBUMIN 2.2 G/DL (3.4-5.0); ANION GAP 1 (8-16); BLOOD UREA NITROGEN 10 MG/DL (7-18); CALCIUM 7.9 MG/DL (8.5-10.1); CHLORIDE 111 MMOL/L (99-107); CREATININE 0.91 MG/DL (0.60-1.10); ETHANOL < 10 MG/DL (<10); GLUCOSE 87 MG/DL (70-104); POTASSIUM 3.3 MMOL/L (3.5-5.1); SODIUM 144 MMOL/L (135-145); THYROID STIMULATING HORMONE 2.66 ulU/ml (0.34-4.50); TOTAL CARBON DIOXIDE 32.2 MMOL/L (24-32); eCRCL 70 ML/MIN; eGFR 86 ML/MIN
[2024-10-03 18:39] LABS: BILIRUBIN,URINE SMALL (Neg); CLARITY,URINE CLEAR (Clear); COLOR,URINE YELLOW (Yellow); GLUCOSE, URINE NEGATIVE (Neg); KETONES,URINE TRACE mg/dl (Neg); LEUKOCYTE ESTERASE ,URINE NEGATIVE (Neg); NITRITES, URINE NEGATIVE (Neg); OCCULT BLOOD,URINE NEGATIVE (Neg); PROTEIN,URINE 30 mg/dl (Neg)
[2024-10-03 18:44] LABS: ANISOCYTOSIS 3+; MICROCYTOSIS 1+; PLATELET ESTIMATE NORMAL
[2024-10-03 18:45] LABS: UA COLLECTION TYPE CLN CATCH MIDSTREAM
[2024-10-03 18:48] LABS: BACTERIA,URINE FEW /HPF (Neg); MUCUS STRANDS MANY /LPF (Neg); SQUAMOUS EPITHELIAL CELL,UR NONE SEEN /LPF (FEW); WBC,URINE 0-4 /HPF (0-4)
[2024-10-03 18:53] LABS: URINE AMPHETAMINE SCREEN NEGATIVE (Neg); URINE BARBITUATE SCREEN NEGATIVE (Neg); URINE BENZODIAZEPINES SCREEN NEGATIVE (Neg); URINE CANNABINOID SCREEN POSITIVE (Neg); URINE COCAINE SCREEN NEGATIVE (Neg); URINE METHADONE SCREEN NEGATIVE (Neg); URINE OPIATE SCREEN NEGATIVE (Neg); URINE PHENCYCLIDINE SCREEN NEGATIVE (Neg)
[2024-10-03 20:05] VITALS: BP 117/83; PULSE 68; RESP 16; O2SAT 98
== END 2024-10-03 20:31 | disposition home or self-care (01) ==
LOC: ER 17:32
DX: F99 Mental disorder, not otherwise specified (principal); G43.909 Migraine, unspecified, not intractable, without status migrainosus; R45.851 Suicidal ideations; F31.9 Bipolar disorder, unspecified; Z20.822 Contact with and (suspected) exposure to COVID-19; F12.90 Cannabis use, unspecified, uncomplicated; F10.90 Alcohol use, unspecified, uncomplicated; Y90.9 Presence of alcohol in blood, level not specified
CPT/HCPCS: 36415; 80048; 80305; 80320; 81001; 84443; 85008; 85025; 87811; 99284

== ENCOUNTER 2024-10-08 20:23 | Emergency (ER) | payer MEDICAID ==
[~2024-10-08] VITALS: Ht 170.2 cm; Wt 44.4 kg
[~2024-10-08 20:23] MED LIST changes: -ACET-1025 PO
[2024-10-08 20:33] VITALS: BP 126/95; PULSE 82; O2SAT 100
[2024-10-08 20:54] VITALS: TEMP 97.6
[2024-10-08 20:59] VITALS: RESP 18
[2024-10-08] MEDS: ketorolac trometh 15mg/ml vial 15 MG/ML ML IM ONE (20:59)
== END 2024-10-08 21:01 | disposition home or self-care (01) ==
LOC: ER 20:24
DX: G89.29 Other chronic pain (principal); M54.9 Dorsalgia, unspecified; G43.909 Migraine, unspecified, not intractable, without status migrainosus; F12.90 Cannabis use, unspecified, uncomplicated; F31.9 Bipolar disorder, unspecified; Z59.00 Homelessness unspecified; Z79.899 Other long term (current) drug therapy
CPT/HCPCS: 96372; 99283; J1885

== ENCOUNTER 2024-10-12 11:53 | Emergency (ER) | payer MEDICAID ==
[~2024-10-12] VITALS: Ht 170.2 cm; Wt 53.6 kg
[2024-10-12 12:18] VITALS: BP 143/81; PULSE 99; RESP 18; O2SAT 98
[2024-10-12] MEDS: ibuprofen tablet 400 MG TABLET PO ONE (13:15)
[2024-10-12 13:21] VITALS: TEMP 99
== END 2024-10-12 13:22 | disposition home or self-care (01) ==
LOC: ER 11:54
DX: Z00.8 Encounter for other general examination (principal); G43.909 Migraine, unspecified, not intractable, without status migrainosus; F31.9 Bipolar disorder, unspecified; F12.90 Cannabis use, unspecified, uncomplicated; F10.90 Alcohol use, unspecified, uncomplicated; Y90.9 Presence of alcohol in blood, level not specified
CPT/HCPCS: 99282

== ENCOUNTER 2024-10-14 16:50 | Emergency (ER) | payer MEDICAID ==
[~2024-10-14] VITALS: Ht 170.2 cm; Wt 52.3 kg
[2024-10-14 17:00] VITALS: BP 145/89; PULSE 67; RESP 16; O2SAT 97
[2024-10-14] MEDS ORDERED: OMEP40CA21 PO (18:39)
[2024-10-14] MEDS: OLANZapine **IM** 10 mg inj. IM ONE (18:53)
[2024-10-14 18:56] VITALS: TEMP 98.8
== END 2024-10-14 18:59 | disposition home or self-care (01) ==
LOC: ER 16:51
DX: F19.10 Other psychoactive substance abuse, uncomplicated (principal); K52.89 Other specified noninfective gastroenteritis and colitis; G43.909 Migraine, unspecified, not intractable, without status migrainosus; Z59.00 Homelessness unspecified; F15.10 Other stimulant abuse, uncomplicated; F12.90 Cannabis use, unspecified, uncomplicated
CPT/HCPCS: 96372; 99283; J3490

== ENCOUNTER 2024-10-17 11:51 | Emergency (ER) | payer MEDICAID ==
[~2024-10-17] VITALS: Ht 170.2 cm; Wt 52.6 kg
[~2024-10-17 11:51] MED LIST changes: -MELO-102 PO; +OMEP40CA21 PO
[2024-10-17] MEDS: naproxen 500mg tablet PO ONE (13:28)
[2024-10-17 13:32] VITALS: BP 132/80; PULSE 65; RESP 16; TEMP 98.2; O2SAT 99
[2024-10-18] MEDS ORDERED: MELO-102 PO (20:55)
== END 2024-10-17 13:34 | disposition home or self-care (01) ==
LOC: ER 11:52
DX: G89.29 Other chronic pain (principal); M54.9 Dorsalgia, unspecified; G43.909 Migraine, unspecified, not intractable, without status migrainosus; F12.90 Cannabis use, unspecified, uncomplicated; F17.200 Nicotine dependence, unspecified, uncomplicated; F10.90 Alcohol use, unspecified, uncomplicated; Y90.9 Presence of alcohol in blood, level not specified
CPT/HCPCS: 99282

== ENCOUNTER 2024-10-18 19:14 | Emergency (ER) | payer MEDICAID ==
[~2024-10-18] VITALS: Ht 170.2 cm; Wt 54.2 kg
[2024-10-18 20:12] LABS: BASOPHILS # (AUTO) 0.1 X10'3 (0-0.2); BASOPHILS % (AUTO) 1.5 % (0-1); EOSINOPHILS # (AUTO) 0.4 X10'3 (0-0.9); EOSINOPHILS % (AUTO) 8.4 % (0-6); HEMATOCRIT 33.7 % (42.0-52.0); HEMOGLOBIN 10.9 g/dl (14.0-17.9); LYMPHOCYTES # (AUTO) 1.9 X10'3 (1.1-4.8); LYMPHOCYTES % (AUTO) 43.2 % (21-51); MEAN CORPUSCULAR HEMOGLOBIN 28.3 PG (27.0-31.0); MEAN CORPUSCULAR HGB CONC 32.2 g/dL (33.0-36.5); MEAN CORPUSCULAR VOLUME 87.9 FL (78-98); MEAN PLATELET VOLUME 8.1 FL (7.4-10.4); MONOCYTES # (AUTO) 0.4 X10'3 (0-0.9); MONOCYTES % (AUTO) 9.4 % (2-12); NEUTROPHILS # (AUTO) 1.6 X10'3 (1.8-7.7); NEUTROPHILS % (AUTO) 37.5 % (42-75); PLATELET COUNT 215 X10'3 (140-440); RED BLOOD COUNT 3.84 X10'6 (4.70-6.10); RED CELL DISTRIBUTION WIDTH 21.4 % (11.5-14.5); WHITE BLOOD COUNT 4.3 X10'3 (4.5-11.0)
[2024-10-18 20:17] LABS: ALBUMIN 2.7 G/DL (3.4-5.0); ANION GAP 9 (8-16); BLOOD UREA NITROGEN 17 MG/DL (7-18); BUN/CREATININE RATIO 18.3 (10.0-20.0); CALCIUM 8.4 MG/DL (8.5-10.1); CHLORIDE 108 MMOL/L (99-107); CREATININE 0.93 MG/DL (0.60-1.10); ETHANOL < 10 MG/DL (<10); GLUCOSE 100 MG/DL (70-104); POTASSIUM 3.4 MMOL/L (3.5-5.1); SODIUM 145 MMOL/L (135-145); TOTAL CARBON DIOXIDE 28.3 MMOL/L (24-32); eCRCL 68 ML/MIN; eGFR 84 ML/MIN
[2024-10-18 20:49] LABS: ANISOCYTOSIS 3+; MICROCYTOSIS 1+; PLATELET ESTIMATE NORMAL
[2024-10-18] MEDS ORDERED: MELO-102 PO (20:55)
[2024-10-18 21:16] LABS: URINE AMPHETAMINE SCREEN NEGATIVE (Neg); URINE BARBITUATE SCREEN NEGATIVE (Neg); URINE BENZODIAZEPINES SCREEN NEGATIVE (Neg); URINE CANNABINOID SCREEN POSITIVE (Neg); URINE COCAINE SCREEN NEGATIVE (Neg); URINE METHADONE SCREEN NEGATIVE (Neg); URINE OPIATE SCREEN NEGATIVE (Neg); URINE PHENCYCLIDINE SCREEN NEGATIVE (Neg)
[2024-10-18] MEDS: ferrous sulfate 325mg tablet PO SCH (21:21)
[2024-10-18] MEDS: pantoprazole 40mg Tablet.DR PO SCH (21:21)
[2024-10-18] MEDS: quetiapine 100mg tablet PO SCH (21:21)
[2024-10-18] MEDS ORDERED: acetaminophen 325mg tablet PO PRN (21:25)
[2024-10-19] MEDS: MELOXICAM 7.5 MG TABLET PO SCH (09:15)
[2024-10-19 09:50] VITALS: BP 148/86; PULSE 70; RESP 16; TEMP 98.4; O2SAT 98
== END 2024-10-19 09:50 ==
LOC: ER 19:15
DX: R45.851 Suicidal ideations (principal); F12.90 Cannabis use, unspecified, uncomplicated; F10.90 Alcohol use, unspecified, uncomplicated; Z20.822 Contact with and (suspected) exposure to COVID-19; Y90.9 Presence of alcohol in blood, level not specified
CPT/HCPCS: 36415; 80048; 80305; 80320; 85008; 85025; 87811; 99285

== ENCOUNTER 2024-10-21 14:40 | Emergency (ER) | payer MEDICAID ==
[~2024-10-21] VITALS: Ht 170.2 cm; Wt 54.5 kg
[~2024-10-21 14:40] MED LIST changes: +MELO-102 PO; -OMEP40CA21 PO
[2024-10-21 14:49] VITALS: BP 155/104; PULSE 77; RESP 18; TEMP 97.9; O2SAT 99
[2024-10-21] MEDS ORDERED: NAPR-56 PO (16:22)
== END 2024-10-21 16:33 | disposition home or self-care (01) ==
LOC: ER 14:41
DX: G89.29 Other chronic pain (principal); M54.9 Dorsalgia, unspecified; M79.641 Pain in right hand; M79.642 Pain in left hand; F12.90 Cannabis use, unspecified, uncomplicated; F31.9 Bipolar disorder, unspecified
CPT/HCPCS: 99282

== ENCOUNTER → 2024-10-22 | Emergency (ER) | payer MEDICAID ==
[~2024-10-22] VITALS: Ht 172.7 cm; Wt 39.8 kg
[~2024-10-22] MED LIST changes: +NAPR-56 PO
[2024-10-22 18:28] VITALS: BP 115/69; PULSE 89; RESP 15; TEMP 96.8; O2SAT 98
--- NOTE | 2024-10-22 20:09 | Physician Documentation ---
History of Present Illness ~ Chief Complaint: Finger pain Stated Complaint: FINGER PAIN Time Seen by MD: 19:19 Primary Medical Doctor: gume ayala [facility] Presents with a complaint of left thumb pain. States that he was homeless and developed the some paint thumb pain through his scabbing for various items today. Requesting a bandage. Because his nail has become dislodged in his left hand denies any severe pain however he was any fevers or nausea vomit Day of Onset: Oct 22, 2024 Tetanus within 5 years: No Medication Reconciliation Allergies: Coded Allergies: No Known Allergies (Unverified , 10/22/24) Scheduled Ferrous Sulfate* (Ferrous Sulfate*), 1 TAB PO TID, (Reported) Meloxicam (Meloxicam), 1 TAB PO DAILY, (Reported) Naproxen (Naproxen), 1 TAB PO DAILY Pantoprazole Sodium (Pantoprazole Sodium), 40 MG PO BID, (Reported) Quetiapine Fumarate (Seroquel), 100 MG PO HS, (Reported) Past Medical History Past Medical History: Migraine, Hepatitis C, Chronic Back Pain, Bipolar Patient History: Patient reports no known family medical history. Alcohol Use: Sober Drug Use: marijuana Lives with: Other Lives In: Homeless Review of Systems All Other Systems at this time: Reviewed and Negative ROS As stated above in the HPI, otherwise all systems are reviewed and negative. Physical Exam Vital Signs: Temperature: 96.8, Source: Temporal, Heart Rate: 89, Respiratory Rate: 15, BP: 115/69, Pulse Oximetry: 98, Weight: 39.800 Physical Exam General: Alert, no apparent distress. HEENT: PERRL, EOMI, no injection, moist mucous membranes. Extremities: Normal range of motion, blackend left nail, no erythema, soiled fingers Neurologic: Oriented x4. Psychiatric: Normal mood and affect. Skin: Normal color, warm and dry. No edema, no ecchymosis. Progress Results/Orders Results/Orders Orders - CASSIUS GO SITE DAMAGE PREVENTION TECHNICIAN General Nursing Order (10/22/24 ) Vital Signs 10/22/24 18:28 Temp 96.8 Pulse 89 Resp 15 B/P (MAP) 115/69 Pulse Ox 98 Medical Decision Making Findings Iapplied a bandage and a splint to keep him from injuring his thumb further. He was advised that he will likely lose the the nail as it is not completely attached. Finger Diff Dx:Considerations: Include: Abrasion, Cellulitis, Contusion, Dislocation, Fracture, Hematoma, Laceration, Neurovascular injury, Open fracture, Subungual hematoma, Other Departure Disposition: 01 HOME / SELF CARE / HOMELESS Impression: Primary Impression: Wound of skin Condition: Stable Discharge Instructions: General Discharge Instructions Referrals: NO PRIMARY CARE PROVIDER (PCP) Signature Scribe Signature: no scribe Attestation: The note accurately reflects work and decisions made by me.London Benites MD 10/23/24 05:36 CASSIUS GO NP Oct 22, 2024 20:08 LONDON BENITES MD Oct 23, 2024 05:36
== END | disposition home or self-care (01) ==
LOC: ER 18:16
DX: M79.645 Pain in left finger(s) (principal); G89.29 Other chronic pain; M54.9 Dorsalgia, unspecified; F12.90 Cannabis use, unspecified, uncomplicated; G43.909 Migraine, unspecified, not intractable, without status migrainosus; Z59.00 Homelessness unspecified; Z79.899 Other long term (current) drug therapy
CPT/HCPCS: 29130; 99281; 99283

== ENCOUNTER 2024-10-25 18:01 | Emergency (ER) | payer MEDICAID ==
[~2024-10-25] VITALS: Ht 170.2 cm; Wt 53.5 kg
[2024-10-25] MEDS: traMADol 50MG tablet PO ONE (20:17)
[2024-10-25 20:20] VITALS: BP 145/82; PULSE 80; RESP 18; TEMP 98.6; O2SAT 99
== END 2024-10-25 20:21 | disposition home or self-care (01) ==
LOC: ER 18:01
DX: G89.29 Other chronic pain (principal); M54.9 Dorsalgia, unspecified; G43.909 Migraine, unspecified, not intractable, without status migrainosus; F31.9 Bipolar disorder, unspecified; F12.90 Cannabis use, unspecified, uncomplicated; Z59.00 Homelessness unspecified; Z79.899 Other long term (current) drug therapy
CPT/HCPCS: 99283

== ENCOUNTER 2024-10-26 16:39 | Emergency (ER) | payer MEDICAID ==
[~2024-10-26] VITALS: Ht 170.2 cm; Wt 53.6 kg
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
[2024-10-26] MEDS ORDERED: ketorolac trometh 15mg/ml vial 15 MG/ML ML IV ONE (17:20)
--- NOTE | 2024-10-26 17:43 | ELECTROCARDIOGRAPH REPORT ---
[facility] Test Date: 2024-10-26 Test Time: 17:41:18 Pat Name: ROSS CRENSHAW Department: EMERGENCY ROOM Room: Gender: M Material Disposition Inspector: THANIA : 1970 Requested By: CASSIUS GO Order Number: [id number] Reading MD: Dr. Marcelino Hairston Measurements Intervals [place] Rate: 60 P: 67 CT: 104 QRS: -26 QRSD: 87 T: 37 QT: 460 QTc: 460 Interpretive Statements Sinus rhythm Short CT interval Borderline left axis deviation Abnormal R-wave progression, early transition Electronically Signed On 10-26-2024 19:01:[address] Marcelino Hairston Please click the below link to view image of tracing.
[2024-10-26] MEDS ORDERED: ketorolac trometh 15mg/ml vial 15 MG/ML ML IM ONE (18:25)
[2024-10-26] MEDS: traMADol 50MG tablet PO ONE (18:42)
[2024-10-26 18:46] VITALS: BP 154/90; PULSE 64; RESP 16; TEMP 98.6; O2SAT 98
== END 2024-10-26 18:47 | disposition home or self-care (01) ==
LOC: ER 16:39
DX: S50.311A Abrasion of right elbow, initial encounter (principal); G89.29 Other chronic pain; M54.9 Dorsalgia, unspecified; E86.0 Dehydration; F12.90 Cannabis use, unspecified, uncomplicated; F31.9 Bipolar disorder, unspecified; G43.909 Migraine, unspecified, not intractable, without status migrainosus; Z59.00 Homelessness unspecified; X58.XXXA Exposure to other specified factors, initial encounter; Y93.89 Activity, other specified; Y92.89 Other specified places as the place of occurrence of the external cause; Y99.8 Other external cause status
CPT/HCPCS: 93005; 99283

== ENCOUNTER 2024-10-27 16:33 | Emergency (ER) | payer MEDICAID ==
[~2024-10-27] VITALS: Ht 170.2 cm; Wt 63.6 kg
--- NOTE | 2024-10-27 17:26 | RADIOLOGY REPORT ---
CLINICAL INDICATION: Multiple lacerations by glass rule out foreign body TECHNIQUE: 2 radiographic views of the left forearm were obtained. Comparison: None FINDINGS/IMPRESSION: There is no evidence of acute fracture or dislocation. The visualized joint space is well maintained. The alignment is anatomical. External overlying density limits evaluation of the soft tissue fine details.
[2024-10-27 17:36] LABS: BASOPHILS # (AUTO) 0.1 X10'3 (0-0.2); BASOPHILS % (AUTO) 1.2 % (0-1); EOSINOPHILS # (AUTO) 0.1 X10'3 (0-0.9); HEMATOCRIT 35.4 % (42.0-52.0); HEMOGLOBIN 11.7 g/dl (14.0-17.9); LYMPHOCYTES # (AUTO) 1.3 X10'3 (1.1-4.8); MEAN CORPUSCULAR HEMOGLOBIN 28.5 PG (27.0-31.0); MEAN CORPUSCULAR VOLUME 86.5 FL (78-98); MEAN PLATELET VOLUME 8.8 FL (7.4-10.4); MONOCYTES # (AUTO) 0.6 X10'3 (0-0.9); MONOCYTES % (AUTO) 8.2 % (2-12); NEUTROPHILS # (AUTO) 5.7 X10'3 (1.8-7.7); NEUTROPHILS % (AUTO) 72.6 % (42-75); PLATELET COUNT 195 X10'3 (140-440); RED BLOOD COUNT 4.09 X10'6 (4.70-6.10); WHITE BLOOD COUNT 7.8 X10'3 (4.5-11.0)
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
[2024-10-27 17:48] LABS: ALBUMIN 3.4 G/DL (3.4-5.0); ANION GAP 8 (8-16); BLOOD UREA NITROGEN 20 MG/DL (7-18); BUN/CREATININE RATIO 26.3 (10.0-20.0); CALCIUM 8.4 MG/DL (8.5-10.1); CHLORIDE 106 MMOL/L (99-107); CREATININE 0.76 MG/DL (0.60-1.10); GLUCOSE 121 MG/DL (70-104); SODIUM 141 MMOL/L (135-145); TOTAL CARBON DIOXIDE 27.3 MMOL/L (24-32); eCRCL 98 ML/MIN; eGFR > 90 ML/MIN
[2024-10-27 17:49] LABS: POTASSIUM 3.5 MMOL/L (3.5-5.1)
[2024-10-27 17:59] LABS: ETHANOL < 10 MG/DL (<10)
[2024-10-27 18:22] LABS: PLATELET ESTIMATE NORMAL
[2024-10-27 18:23] LABS: ANISOCYTOSIS 2+
[2024-10-27 18:24] LABS: MICROCYTOSIS 1+
[2024-10-27 19:06] LABS: BILIRUBIN,URINE SMALL (Neg); CLARITY,URINE SLIGHTLY CLOUDY (Clear); GLUCOSE, URINE NEGATIVE (Neg); KETONES,URINE NEGATIVE (Neg); LEUKOCYTE ESTERASE ,URINE NEGATIVE (Neg); NITRITES, URINE NEGATIVE (Neg); OCCULT BLOOD,URINE LARGE (Neg); PROTEIN,URINE 30 mg/dl (Neg)
[2024-10-27 19:13] LABS: COLOR,URINE AMBER (Yellow); UA COLLECTION TYPE CLN CATCH MIDSTREAM; URINE AMPHETAMINE SCREEN NEGATIVE (Neg); URINE BARBITUATE SCREEN NEGATIVE (Neg); URINE BENZODIAZEPINES SCREEN NEGATIVE (Neg); URINE CANNABINOID SCREEN POSITIVE (Neg); URINE COCAINE SCREEN NEGATIVE (Neg); URINE METHADONE SCREEN NEGATIVE (Neg); URINE OPIATE SCREEN NEGATIVE (Neg); URINE PHENCYCLIDINE SCREEN NEGATIVE (Neg)
[2024-10-27 19:14] LABS: BACTERIA,URINE FEW /HPF (Neg); MUCUS STRANDS MODERATE /LPF (Neg); RBC,URINE TNTC /HPF (0-2); WBC,URINE 0-4 /HPF (0-4)
[2024-10-27 19:15] LABS: CAL OXALATE CRYSTALS 2+ /HPF (NEGATIVE); RENAL CELLS, URINE FEW /HPF; SQUAMOUS EPITHELIAL CELL,UR NONE SEEN /LPF (FEW)
[2024-10-27] MEDS: TETanus/Pertussis (Acell)/Diphther VAC/PF (Tdap-Adult) 0.5ml syringe IMVAC ONE (19:45)
[2024-10-28 06:13] VITALS: BP 132/82; PULSE 72; TEMP 98.6; O2SAT 99
[2024-10-28 06:33] VITALS: RESP 14
== END 2024-10-28 11:26 | disposition home or self-care (01) ==
LOC: ER 16:34
DX: S51.812A Laceration without foreign body of left forearm, initial encounter (principal); S61.412A Laceration without foreign body of left hand, initial encounter; T14.91XA Suicide attempt, initial encounter; F12.90 Cannabis use, unspecified, uncomplicated; Z20.822 Contact with and (suspected) exposure to COVID-19; X58.XXXA Exposure to other specified factors, initial encounter; Y93.89 Activity, other specified; Y92.89 Other specified places as the place of occurrence of the external cause; Y99.8 Other external cause status
CPT/HCPCS: 12001; 36415; 73090; 80048; 80305; 80320; 81001; 85008; 85025; 87811; 90471; 90715; 99284; A6258; A6449

== ENCOUNTER 2024-11-03 18:33 | Emergency (ER) | payer MEDICAID ==
[~2024-11-03] VITALS: Ht 170.2 cm; Wt 51.6 kg
[2024-11-03 18:39] VITALS: BP 141/86; PULSE 98; RESP 18; TEMP 98.8; O2SAT 99
[2024-11-03 19:13] LABS: BASOPHILS # (AUTO) 0.1 X10'3 (0-0.2); BASOPHILS % (AUTO) 0.9 % (0-1); EOSINOPHILS # (AUTO) 0.3 X10'3 (0-0.9); EOSINOPHILS % (AUTO) 3.4 % (0-6); HEMATOCRIT 35.2 % (42.0-52.0); HEMOGLOBIN 11.6 g/dl (14.0-17.9); LYMPHOCYTES # (AUTO) 1.5 X10'3 (1.1-4.8); LYMPHOCYTES % (AUTO) 19.7 % (21-51); MEAN CORPUSCULAR HEMOGLOBIN 28.4 PG (27.0-31.0); MEAN CORPUSCULAR HGB CONC 33.1 g/dL (33.0-36.5); MEAN CORPUSCULAR VOLUME 85.8 FL (78-98); MEAN PLATELET VOLUME 7.8 FL (7.4-10.4); MONOCYTES % (AUTO) 13.1 % (2-12); NEUTROPHILS # (AUTO) 4.6 X10'3 (1.8-7.7); NEUTROPHILS % (AUTO) 62.9 % (42-75); PLATELET COUNT 341 X10'3 (140-440); RED CELL DISTRIBUTION WIDTH 17.7 % (11.5-14.5); WHITE BLOOD COUNT 7.4 X10'3 (4.5-11.0)
[2024-11-03 19:23] LABS: ALANINE AMINOTRANSFERASE 27 U/L (12-78); ALBUMIN 2.9 G/DL (3.4-5.0); ALBUMIN/GLOBULIN RATIO 0.8 (1.1-1.5); ALKALINE PHOSPHATASE 71 IU/L (46-116); ANION GAP 4 (8-16); ASPARTATE AMINO TRANSFERASE 21 U/L (10-37); BILIRUBIN,TOTAL 0.3 MG/DL (0.1-1.0); BLOOD UREA NITROGEN 8 MG/DL (7-18); BUN/CREATININE RATIO 7.3 (10.0-20.0); CALCIUM 9.7 MG/DL (8.5-10.1); CHLORIDE 105 MMOL/L (99-107); CREATININE 1.09 MG/DL (0.60-1.10); GLUCOSE 148 MG/DL (70-104); POTASSIUM 3.4 MMOL/L (3.5-5.1); SODIUM 141 MMOL/L (135-145); TOTAL CARBON DIOXIDE 31.8 MMOL/L (24-32); TOTAL PROTEIN 6.6 G/DL (6.4-8.2); eCRCL 55 ML/MIN; eGFR 70 ML/MIN
--- NOTE | 2024-11-03 19:35 | Physician Documentation ---
History of Present Illness ~ Chief Complaint: Wound Re-Check Stated Complaint: BODY PAIN Primary Medical Doctor: gume Faulkner This is a 54-year-old male who presents back to the emergency department requesting wound check of stapled lacerations to posterior wrists, patient a dditionally reports he has concern for infection to abrasions to his right hand. Patient additionally reports that he has wounds to his face due to picking at his skin. Patient reports that he has recently stopped using methamphetamine. Tetanus within 5 years?: No Medication Reconciliation Allergies: Coded Allergies: No Known Allergies (Unverified , 11/03/24) Scheduled Ferrous Sulfate* (Ferrous Sulfate*), 1 TAB PO TID, (Reported) Meloxicam (Meloxicam), 1 TAB PO DAILY, (Reported) Mupirocin* (Bactroban*), 1 APPLIC TOP Q8H Naproxen (Naproxen), 1 TAB PO DAILY Pantoprazole Sodium (Pantoprazole Sodium), 40 MG PO BID, (Reported) Quetiapine Fumarate (Seroquel), 100 MG PO HS, (Reported) Past Medical History Past Medical History: Migraine, Hepatitis C, Chronic Back Pain, Bipolar Patient History: Patient reports no known family medical history. Alcohol Use: Sober Drug Use: marijuana Lives with: Other Lives In: Homeless Review of Systems ROS As stated above in the HPI, otherwise all systems are reviewed and negative. Physical Exam Vital Signs: Temperature: 98.8, Heart Rate: 98, Respiratory Rate: 18, BP: 141/86, Pulse Oximetry: 99, Weight: 51.590 Oxygen Flow Rate: 0 Physical Exam VITALS: Reviewed and as above. GENERAL: Alert, nontoxic appearing, no apparent distress. RESPIRATORY: No increased work of breathing, no respiratory distress, speaking in full clear sentences SKIN: Scabs to the bridge of nose, cheeks, and forehead. Abrasions to dorsal aspect of right hand Progress Results/Orders Results/Orders Orders - [place] BOB Drug Screen, Urine (11/03/24 18:45) Completed Orders - [place] BOB Cbc/Diff (11/03/24 18:45) CMP (11/03/24 18:45) Vital Signs 11/03/24 18:39 Temp 98.8 Pulse 98 Resp 18 B/P (MAP) 141/86 Pulse Ox 99 O2 Flow Rate 0 Laboratory Tests Test 11/03/24 18:57 White Blood Count 7.4 Red Blood Count 4.10 L Hemoglobin 11.6 L Hematocrit 35.2 L Mean Corpuscular Volume 85.8 Mean Corpuscular Hemoglobin 28.4 Mean Corpuscular Hemoglobin Concent 33.1 Red Cell Distribution Width 17.7 H Platelet Count 341 Mean Platelet Volume 7.8 Neutrophils (%) (Auto) 62.9 Lymphocytes (%) (Auto) 19.7 L Monocytes (%) (Auto) 13.1 H Eosinophils (%) (Auto) 3.4 Basophils (%) (Auto) 0.9 Neutrophils # (Auto) 4.6 Lymphocytes # (Auto) 1.5 Monocytes # (Auto) 1.0 H Eosinophils # (Auto) 0.3 Basophils # (Auto) 0.1 CBC Comment Sodium Level 141 Potassium Level 3.4 L Chloride Level 105 Carbon Dioxide Level 31.8 Anion Gap 4 L Blood Urea Nitrogen 8 Creatinine 1.09 Estimated GFR/1.73 m2 70 BUN/Creatinine Ratio 7.3 L Glucose Level 148 H Calcium Level 9.7 Total Bilirubin 0.3 Aspartate Amino Transf (AST/SGOT) 21 Alanine Aminotransferase (ALT/SGPT) 27 Alkaline Phosphatase 71 Total Protein 6.6 Albumin 2.9 L Globulin 3.7 Albumin/Globulin Ratio 0.8 L Chemistry Comments Medical Decision Making Findings MSE performed in triage and patient returned to ED lobby by nursing staff to await an open ED bed, at some point while waiting in the lobby patient appears to have eloped. Differential Dx:Considerations: Include: Abscess, Cellulitis, Dressing change, Other (Intoxication, methamphetamine abuse) Departure Disposition: 07 LEFT AWOL/ELOPED Impression: Primary Impression: Wound Condition: Stable Referrals: NO PRIMARY CARE PROVIDER (PCP) Signature Scribe Signature: No scribe Attestation: The note accurately reflects work and decisions made by me.AYANNA Cuellar 11/04/24 04:24 [place] BOB November 03, 2024 19:35
[2024-11-04] MEDS ORDERED: MUPI22OI30 TOP (03:14)
== END 2024-11-03 21:50 | disposition left against medical advice (07) ==
LOC: ER 18:33
DX: S61.511D Laceration without foreign body of right wrist, subsequent encounter (principal); S61.512D Laceration without foreign body of left wrist, subsequent encounter; S60.511D Abrasion of right hand, subsequent encounter; F31.9 Bipolar disorder, unspecified; F12.90 Cannabis use, unspecified, uncomplicated; G43.909 Migraine, unspecified, not intractable, without status migrainosus; Z59.00 Homelessness unspecified; Z79.899 Other long term (current) drug therapy; X58.XXXD Exposure to other specified factors, subsequent encounter
CPT/HCPCS: 36415; 80053; 85025; 99283

== ENCOUNTER 2024-11-04 00:45 | Emergency (ER) | payer MEDICAID ==
[~2024-11-04] VITALS: Ht 167.6 cm; Wt 51.6 kg
[2024-11-04] MEDS ORDERED: MUPI22OI30 TOP (03:14)
--- NOTE | 2024-11-04 03:15 | Physician Documentation ---
History of Present Illness ~ Chief Complaint: Wound Re-Check Stated Complaint: PAIN Time Seen by MD: 03:09 Primary Medical Doctor: gume Faulkner Patient presents to the emergency room requesting wound care for multiple wounds in his bilateral upper extremities. He states he has been putting alcohol and hydrogen peroxide in his wounds. He denies picking Tetanus within 5 years?: No Medication Reconciliation Allergies: Coded Allergies: No Known Allergies (Unverified , 11/03/24) Scheduled Ferrous Sulfate* (Ferrous Sulfate*), 1 TAB PO TID, (Reported) Meloxicam (Meloxicam), 1 TAB PO DAILY, (Reported) Naproxen (Naproxen), 1 TAB PO DAILY Pantoprazole Sodium (Pantoprazole Sodium), 40 MG PO BID, (Reported) Quetiapine Fumarate (Seroquel), 100 MG PO HS, (Reported) Past Medical History Past Medical History: Migraine, Hepatitis C, Chronic Back Pain, Bipolar Patient History: Patient reports no known family medical history. Alcohol Use: Sober Drug Use: marijuana Lives with: Other Lives In: Homeless Review of Systems ROS All review of systems negative except as per HPI Physical Exam Vital Signs: Temperature: 98.2, Source: Oral, Heart Rate: 78, Respiratory Rate: 17, BP: 152/105, Pulse Oximetry: 99, Weight: 51.590 Oxygen Flow Rate: 0 Physical Exam General: Patient is awake, alert, oriented x4 in no acute distress. Homeless appearing Head: Normocephalic and atraumatic. Eyes: Conjunctival normal. EOMI. PERRL. ENT: Mucous membranes moist. Neck: Supple, trachea is midline. Chest: Clear to auscultation bilaterally without rales, rhonchi, or wheezes. There is no accessory muscle use or retractions. Cardiac: RRR without murmurs, gallops, or rubs. Extremities: Multiple scabs of different chronicity on bilateral upper extremities and face. No signs of cellulitis Progress Results/Orders Results/Orders Vital Signs 11/04/24 00:47 Temp 98.2 Pulse 78 Resp 17 B/P (MAP) 152/105 Pulse Ox 99 O2 Flow Rate 0 Medical Decision Making Findings Patient presents to the emergency room for evaluation of multiple wounds in his bilateral upper extremities. Differentials include but are not limited to abscess, cellulitis, sepsis, scabs. There was no evidence of mitchell cellulitis and he had not feel he requires systemic antibiotics. I suspect it was multiple ulcers of different chronicity or from picking although he denies this. I have instructed him to not poor alcohol and hydrogen peroxide on his wounds as they will kill it was newly developing cells from healing. He acknowledges this. Wound care provided we will provide him topical antibiotics. Departure Disposition: HOME / SELF CARE / HOMELESS Impression: Primary Impression: Wound Condition: Stable Discharge Instructions: Wound Care, Adult Additional Instructions: Do not use alcohol or hydrogen peroxide on your wounds. No picking Referrals: NO PRIMARY CARE PROVIDER (PCP) Prescriptions Mupirocin* (Bactroban*) 22 Gm Tube 1 APPLIC TOP Q8H for 7 Days, #22 GM apply to affected area(s) Prov: LONDON BENITES MD 11/04/24 Education Educated: Patient Educated regarding: diagnosis, treatment, need for follow up Signature Scribe Signature: No scribe Attestation: The note accurately reflects work and decisions made by me.London Benites MD 11/04/24 03:15 LONDON BENITES MD November 04, 2024 03:15
[2024-11-04] MEDS: bacitracin 15gm ointment TP ONE (03:21)
[2024-11-04 03:31] VITALS: BP 148/92; PULSE 72; RESP 18; TEMP 98.6; O2SAT 97
== END 2024-11-04 03:32 | disposition home or self-care (01) ==
LOC: ER 00:46
DX: S00.80XD Unspecified superficial injury of other part of head, subsequent encounter (principal); G89.29 Other chronic pain; M54.9 Dorsalgia, unspecified; F12.90 Cannabis use, unspecified, uncomplicated; G43.909 Migraine, unspecified, not intractable, without status migrainosus; Z59.00 Homelessness unspecified; Z79.899 Other long term (current) drug therapy; X58.XXXD Exposure to other specified factors, subsequent encounter
CPT/HCPCS: 99283; A6446; A6449

== ENCOUNTER 2024-11-07 12:59 | Emergency (ER) | payer MEDICAID ==
[~2024-11-07] VITALS: Ht 170.2 cm; Wt 50.9 kg
[~2024-11-07 12:59] MED LIST changes: +MUPI22OI30 TOP
[2024-11-07 13:08] VITALS: BP 136/91; PULSE 18; O2SAT 98
--- NOTE | 2024-11-07 13:43 | Physician Documentation ---
HPI ~ General Chief Complaint: Medication Request Stated Complaint: MULTIPLE MEDICAL COMPLAINTS Time Seen by MD: 13:18 Primary Medical Doctor: gume cai History of Present Illness HPI Comments Patient is seen today with complaints of GERD like symptoms and wants a prescription for Prilosec, he also wants a script for Seroquel 100 mg to be taken at night to help him sleep. Patient also states he wants a Toradol shot for his back pain. Patient has no new or other concerns or complaints at this time. Patient states his last Toradol shot was 2-3 weeks ago. Patient denies any kidney or liver chronic disease. Medication Reconciliation Allergies: Coded Allergies: No Known Allergies (Unverified , 11/03/24) Scheduled Ferrous Sulfate* (Ferrous Sulfate*), 1 TAB PO TID, (Reported) Meloxicam (Meloxicam), 1 TAB PO DAILY, (Reported) Mupirocin* (Bactroban*), 1 APPLIC TOP Q8H Naproxen (Naproxen), 1 TAB PO DAILY Pantoprazole Sodium (Pantoprazole Sodium), 40 MG PO BID, (Reported) Quetiapine Fumarate (Seroquel), 100 MG PO HS, (Reported) Past Medical History Past Medical History: Migraine, Hepatitis C, Chronic Back Pain, Bipolar Patient History: Patient reports no known family medical history. Alcohol Use: Sober Drug Use: marijuana Lives with: Other Lives In: Homeless Physical Exam Physical Exam Vital Signs: Temperature: 98.2, Source: Oral, Heart Rate: 18, Respiratory Rate: 18, BP: 136/91, Pulse Oximetry: 98, Weight: 50.900 Physical Exam General: Awake and Alert, no acute distress. HEENT: Conjunctiva pink, Sclera clear, Mucus Membranes moist. Neck: Supple without masses and tenderness. Resp: Unlabored. Lungs clear to auscultation bilaterally. Heart: Regular Rate and rhythm, normal S1 and S2 without murmur, rub or gallop. Musculoskeletal: Patient on exam does have decreased range of motion of the lumbar spine in all planes of motion. Patient is neurovascularly intact distally. Motor function is intact distally. Extremities: No cyanosis,clubbing or edema. Skin: Warm and Dry. Progress Results/Orders Results/Orders Completed Orders - MATT TAN PAC Ketorolac Trometh 15mg/Ml Vial (Toradol (11/07/24 13:52) Vital Signs 11/07/24 13:08 Temp 98.2 Pulse 18 Resp 18 B/P (MAP) 136/91 Pulse Ox 98 Medical Decision Making Findings Patient is seen today with complaints of GERD like symptoms and wants a prescription for Prilosec, he also wants a script for Seroquel 100 mg to be taken at night to help him sleep. Patient also states he wants a Toradol shot for his back pain. Patient has no new or other concerns or complaints at this time. Patient states his last Toradol shot was 2-3 weeks ago. Patient denies any kidney or liver chronic disease. Differential Dx:Considerations: Include: Adverse circumstances, Economic, Psychosocial, Medical services unavail., Medication refill, Medication non- compliance, Other Additional Comment insomnia, low back pain, GERD Departure Disposition: HOME / SELF CARE / HOMELESS Impression: Primary Impression: GERD (gastroesophageal reflux disease) Qualified Codes: K21.9 - Gastro-esophageal reflux disease without esophagitis Additional Impressions: Low back pain Qualified Codes: M54.50 - Low back pain, unspecified Insomnia Qualified Codes: G47.00 - Insomnia, unspecified Condition: Stable Discharge Instructions: Gastroesophageal Reflux Disease, Adult, [id number] Additional Instructions: Patient given dose of ibuprofen 800 mg and Tylenol 975 mg by mouth in the ED to day along with amoxicillin 1000 mg by mouth in the ED today. Prescriptions of the same medications were sent to patient's pharmacy. Patient will follow up with dentist as soon as possible. Return to ED with any worsening, concerning or changing symptoms. Referrals: NO PRIMARY CARE PROVIDER (PCP) Prescriptions Omeprazole (Prilosec) 40 Mg Capsule 1 CAP PO DAILY for 30 Days, #30 CAP Prov: MATT TAN 11/07/24 Quetiapine Fumarate (SEROQUEL) 100 Mg Tablet 1 TAB PO HS for 30 Days, #30 TAB 0 Refills Prov: MATT TAN 11/07/24 Signature Scribe Signature: No scribe Attestation: No scribe MATT TAN November 07, 2024 13:43
[2024-11-07] MEDS ORDERED: QUET-1 PO (14:10)
[2024-11-07] MEDS ORDERED: OMEP40CA21 PO (14:10)
[2024-11-07 14:39] VITALS: RESP 16
[2024-11-07] MEDS: ketorolac trometh 15mg/ml vial 15 MG/ML ML IM STA (14:39)
[2024-11-07 14:45] VITALS: TEMP 98.2
== END 2024-11-07 14:46 | disposition home or self-care (01) ==
LOC: ER 13:00
DX: K21.9 Gastro-esophageal reflux disease without esophagitis (principal); G47.00 Insomnia, unspecified; M54.50 Low back pain, unspecified; G43.909 Migraine, unspecified, not intractable, without status migrainosus; F31.9 Bipolar disorder, unspecified; F12.90 Cannabis use, unspecified, uncomplicated; Z59.00 Homelessness unspecified
CPT/HCPCS: 96372; 99283; J1885

== ENCOUNTER 2024-11-10 20:11 | Emergency (ER) | payer MEDICAID ==
[~2024-11-10] VITALS: Ht 170.2 cm; Wt 50.2 kg
[~2024-11-10 20:11] MED LIST changes: +OMEP40CA21 PO
[2024-11-10 20:13] VITALS: BP 141/96; PULSE 71; RESP 16; O2SAT 92
--- NOTE | 2024-11-10 22:11 | Physician Documentation ---
History of Present Illness ~ Chief Complaint: Hand pain Stated Complaint: ARM PAIN Time Seen by MD: 20:38 Primary Medical Doctor: gume Faulkner This 54-year-old male who is well known to this department presents by EMS with concerns for continued chronic hand pain, chronic back pain, and a feeling of lightheadedness. Patient reports that he has been feeling lightheaded all day. Patient reports no fever, chills, or other systemic symptoms. Patient reports no recent drug or alcohol use. Tetanus within 5 years: No Medication Reconciliation Allergies: Coded Allergies: No Known Allergies (Unverified , 11/03/24) Scheduled Ferrous Sulfate* (Ferrous Sulfate*), 1 TAB PO TID, (Reported) Meloxicam (Meloxicam), 1 TAB PO DAILY, (Reported) Mupirocin* (Bactroban*), 1 APPLIC TOP Q8H Naproxen (Naproxen), 1 TAB PO DAILY Omeprazole (Prilosec), 1 CAP PO DAILY Pantoprazole Sodium (Pantoprazole Sodium), 40 MG PO BID, (Reported) Quetiapine Fumarate (Seroquel), 100 MG PO HS, (Reported) Quetiapine Fumarate (Seroquel), 1 TAB PO HS Past Medical History Past Medical History: Migraine, Hepatitis C, Chronic Back Pain, Bipolar Patient History: Patient reports no known family medical history. Alcohol Use: Sober Drug Use: marijuana Lives with: Other Lives In: Homeless Review of Systems ROS Hand pain, back pain, and lightheadedness as stated above in the HPI, otherwise all systems are reviewed and negative. Physical Exam Vital Signs: Temperature: 98.2, Source: Temporal, Heart Rate: 71, Respiratory Rate: 16, BP: 141/96, Pulse Oximetry: 92, Weight: 50.200 Oxygen Flow Rate: 0 Physical Exam VITALS: Reviewed and as above. GENERAL: Alert, nontoxic appearing, no apparent distress. HEENT: PERRLA, EOMI RESPIRATORY: No increased work of breathing, no respiratory distress, speaking in full clear sentences. Lung sounds clear in all [place] CV: Regular rate and rhythm no murmur GI: Nondistended, nontender to palpation, no rebound, no guarding, bowel sounds present MUSCULOSKELETAL: SKIN: Wounds in various stages of healing to the skin of hands and face NEURO: Walking with an unassisted gait Progress Results/Orders Results/Orders Orders - LISBETH,AUSTIN W LICENSED MARRIAGE AND FAMILY THERAPIST Cbc/Diff (11/10/24 22:03) BMP (11/10/24 22:03) Vital Signs 11/10/24 11/10/24 20:13 23:17 Temp 98.2 98.2 Pulse 71 Resp 16 B/P (MAP) 141/96 Pulse Ox 92 O2 Flow Rate 0 Medical Decision Making Findings This 54-year-old male presented back to the emergency department with chronic hand pain and chronic back pain, which he has been seen multiple times for and prescribed medications to manage pain outpatient which he reports is normally effective though patient reported he did not realize he still had pills left. Today patient additionally reported feeling lightheadedness though this report was very vague and patient could not elaborate on symptoms. Patient's physical exam was otherwise benign and consistent with previous visits, vital signs stable. Basic labs were ordered however with shared decision-making patient is choosing a watchful waiting approach and is declining lab draw, patient chooses to return to his camp site to sleep for the night to see if he feels better in the morning reporting he will return to the emergency department if his symptoms get worse. Patient is appropriate for outpatient follow up and verbalized understanding of when to return to the emergency department. General Diff Dx:Considerations: Include: Other (Sepsis, septicemia, CVA, TIA, dehydration, electrolyte abnormality, vertigo, malingering, homeless, hungry) Hand Diff Dx:Considerations: Include: Abrasion, Arthritis, DJD, Laceration, Neurovascular injury, Septic, Cellulitis Departure Time of Disposition: 22:09 Disposition: 01 HOME / SELF CARE / HOMELESS Impression: Primary Impression: Chronic back pain Qualified Codes: M54.9 - Dorsalgia, unspecified; G89.29 - Other chronic pain Additional Impression: Lightheadedness Condition: Improved Additional Instructions: Continue taking your previously prescribed medications including the medication we have prescribed you for pain. Please follow up with your primary care provider in the next few days. Please return to the emergency department for any new or worsening concerning symptoms. Referrals: NO PRIMARY CARE PROVIDER (PCP) Education Educated: Patient Educated regarding: diagnosis, treatment, prognosis, need for follow up Signature Scribe Signature: No scribe Attestation: The note accurately reflects work and decisions made by me.AYANNA Cuellar 11/11/24 01:45 AUSTIN BOB November 10, 2024 22:10
[2024-11-10 23:17] VITALS: TEMP 98.2
== END 2024-11-10 23:18 | disposition home or self-care (01) ==
LOC: ER 20:11
DX: G89.29 Other chronic pain (principal); M54.9 Dorsalgia, unspecified; R42 Dizziness and giddiness; F12.90 Cannabis use, unspecified, uncomplicated; G43.909 Migraine, unspecified, not intractable, without status migrainosus; F31.9 Bipolar disorder, unspecified; Z59.00 Homelessness unspecified; Z79.899 Other long term (current) drug therapy
CPT/HCPCS: 99283

== ENCOUNTER → 2024-11-12 | Emergency (ER) | payer MEDICAID ==
[~2024-11-12] VITALS: Ht 170.2 cm; Wt 51.8 kg
[~2024-11-12] MED LIST changes: +ketorolac trometh 15mg/ml vial 15 MG/ML ML IM ONE
[2024-11-12 19:13] VITALS: BP 143/93; PULSE 105; RESP 16; TEMP 97.9; O2SAT 98
--- NOTE | 2024-11-12 19:26 | Physician Documentation ---
HPI ~ General Chief Complaint: Medication Request Stated Complaint: BACK PAIN Time Seen by MD: 19:16 Primary Medical Doctor: gume cai History of Present Illness HPI Comments Patient presents to the emergency room with back pain. 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 No history of traumas. No bladder or bowel incontinence or lower extremity symptoms. Medication Reconciliation Allergies: Coded Allergies: No Known Allergies (Unverified , 11/12/24) Scheduled Ferrous Sulfate* (Ferrous Sulfate*), 1 TAB PO TID, (Reported) Meloxicam (Meloxicam), 1 TAB PO DAILY, (Reported) Naproxen (Naproxen), 1 TAB PO DAILY Omeprazole (Prilosec), 1 CAP PO DAILY Pantoprazole Sodium (Pantoprazole Sodium), 40 MG PO BID, (Reported) Quetiapine Fumarate (Seroquel), 100 MG PO HS, (Reported) Quetiapine Fumarate (Seroquel), 1 TAB PO HS Discontinued Medications Mupirocin* (Bactroban*), 1 APPLIC TOP Q8H Discontinued Reason: Auto Discontinued Past Medical History Past Medical History: Migraine, Hepatitis C, Chronic Back Pain, Bipolar Patient History: Patient reports no known family medical history. Alcohol Use: Sober Drug Use: marijuana Lives with: Other Lives In: Homeless Review of Systems ROS All review of systems negative except as per HPI Physical Exam Physical Exam Vital Signs: Temperature: 97.9, Source: Oral, Heart Rate: 105, Respiratory Rate: 16, BP: 143/93, Pulse Oximetry: 98, Weight: 51.800 Oxygen Flow Rate: 0 Physical Exam General: Patient is awake, alert, oriented x4 in no acute distress. Covered in picking scabs Head: Normocephalic and atraumatic. Eyes: Conjunctival normal. EOMI. PERRL. ENT: Mucous membranes moist. Neck: Supple, trachea is midline. Chest: Clear to auscultation bilaterally without rales, rhonchi, or wheezes. There is no accessory muscle use or retractions. Cardiac: RRR without murmurs, gallops, or rubs. Back: No midline spinal or CVA tenderness. No step-offs or CVA tenderness. Neuro: Cranial nerves II-XII grossly intact. No focal neuro deficits. Patient ambulating without difficulty. Progress Results/Orders Results/Orders Completed Orders - LONDON BENITES MD Ketorolac Trometh 15mg/Ml Vial (Toradol (11/12/24 19:20) Vital Signs 11/12/24 19:13 Temp 97.9 Pulse 105 Resp 16 B/P (MAP) 143/93 Pulse Ox 98 O2 Flow Rate 0 Medical Decision Making Findings Patient presents to the emergency room with back pain. Differentials include but are not limited to spinal abscess, cauda equina, lumbago, kidney stone. Patient appears comfortable in his ambulating without issue and he had not feel emergent labs or imaging is necessary. Pain medication administered. Departure Disposition: HOME / SELF CARE / HOMELESS Impression: Primary Impression: Lumbago Condition: Stable Discharge Instructions: Acute Back Pain, Adult Referrals: NO PRIMARY CARE PROVIDER (PCP) Education Educated: Patient Educated regarding: diagnosis, treatment, need for follow up Signature Scribe Signature: No scribe Attestation: The note accurately reflects work and decisions made by me.London Benites MD 11/12/24 19:26 LONDON BENITES MD November 12, 2024 19:26
== END | disposition home or self-care (01) ==
LOC: ER 19:04
DX: M54.50 Low back pain, unspecified (principal); G43.909 Migraine, unspecified, not intractable, without status migrainosus; F31.9 Bipolar disorder, unspecified; F12.90 Cannabis use, unspecified, uncomplicated; Z59.00 Homelessness unspecified; Z79.899 Other long term (current) drug therapy
CPT/HCPCS: 99281; 99283

== ENCOUNTER 2024-11-18 02:17 | Emergency (ER) | payer MEDICAID ==
[~2024-11-18] VITALS: Ht 170.2 cm; Wt 51.9 kg
[~2024-11-18 02:17] MED LIST changes: -MUPI22OI30 TOP; -ketorolac trometh 15mg/ml vial 15 MG/ML ML IM ONE
[2024-11-18 02:30] VITALS: BP 170/89; PULSE 80; RESP 16; TEMP 97; O2SAT 99
[2024-11-18] MEDS ORDERED: NAPR-56 PO (08:33)
[2024-11-18] MEDS ORDERED: CYCL-1 PO (08:33)
== END 2024-11-18 03:07 | disposition left against medical advice (07) ==
LOC: ER 02:18
DX: G89.29 Other chronic pain (principal); M54.9 Dorsalgia, unspecified; Z53.21 Procedure and treatment not carried out due to patient leaving prior to being seen by health care provider

== ENCOUNTER 2024-11-18 06:09 | Emergency (ER) | payer MEDICAID ==
[~2024-11-18] VITALS: Ht 170.2 cm; Wt 56.8 kg
--- NOTE | 2024-11-18 08:31 | Physician Documentation ---
History of Present Illness ~ Chief Complaint: Back Pain Stated Complaint: MED REQUEST Time Seen by MD: 08:25 OK to notify your PCP?: Yes Primary Medical Doctor: gume cai Source: patient, RN/, RN notes reviewed, old records Mode of Arrival: POV Exam Limitations: no limitations HPI 54 year old male presents to the emergency department for complaints of chronic back pain. Patient presents frequently for this issue always requesting a shot of toradol. He states that tonight he was having issues sleeping due to the pain. Patient denies any other associated symptoms at this time. Patient denies any other alleviating or exacerbating factors Medication Reconciliation Allergies: Coded Allergies: No Known Allergies (Unverified , 11/18/24) Scheduled Cyclobenzaprine* (Cyclobenzaprine*), 1 TAB PO HS Ferrous Sulfate* (Ferrous Sulfate*), 1 TAB PO TID, (Reported) Meloxicam (Meloxicam), 1 TAB PO DAILY, (Reported) Naproxen (Naproxen), 1 TAB PO DAILY Naproxen (Naproxen), 1 TAB PO Q12H Omeprazole (Prilosec), 1 CAP PO DAILY Pantoprazole Sodium (Pantoprazole Sodium), 40 MG PO BID, (Reported) Quetiapine Fumarate (Seroquel), 100 MG PO HS, (Reported) Quetiapine Fumarate (Seroquel), 1 TAB PO HS Discontinued Medications Mupirocin* (Bactroban*), 1 APPLIC TOP Q8H Discontinued Reason: Auto Discontinued Past Medical History Past Medical History: Migraine, Hepatitis C, Chronic Back Pain, Bipolar Patient History: Patient reports no known family medical history. Alcohol Use: Sober Drug Use: marijuana Lives with: Other Lives In: Homeless Review of Systems All Other Systems at this time: Reviewed and Negative ROS As stated above in the HPI, otherwise all systems are reviewed and negative. Physical Exam Physical Exam Vital Signs: RN Vital Signs have been reviewed: Yes, Temperature: 97.8, Source: Temporal, Heart Rate: 63, Respiratory Rate: 18, BP: 157/100, Pulse Oximetry: 100, Weight: 56.820 Pulse Oximetry Reflects: adequate oxygenation Physical Exam General: The patient is well developed, well nourished, nontoxic appearing and is in no acute distress. Skin: [place], warm and dry with no rashes. HEENT: Head was normocephalic and atraumatic. Eyes - pupils equal, round, reactive to light and accommodation. Extraocular movements were intact. Conjunctivae were nonicteric. Ears - bilateral tympanic membranes were normal. The mouth and oropharynx were clear with moist mucous membranes. There were no pharyngeal exudates or erythema. Neck: Supple and nontender. There was no jugular venous distention, lymphadenopathy, thyromegaly or masses. Chest: Clear to auscultation bilaterally without wheezes, rales or rhonchi. No accessory muscle use. No dullness to percussion. Heart: Rate regular and rhythmic. S1, S2. No murmurs. Palpation of the chest wall was normal. No rubs or thrills. Abdomen: Soft, nontender and nondistended. Positive bowel sounds. No guarding or rebound. No hepatosplenomegaly or palpable masses. Extremities: No cyanosis, clubbing or edema. The patient moves all extremities. Pulses were equal and symmetric. Neurologic: Cranial nerves II-XII were intact. Sensation was intact to light touch throughout. Motor strength was 5/5 in all four extremities. Deep tendon reflexes were intact in both upper and lower extremities. Psychologic: The patient was oriented to person, place and time. The patient d emonstrated appropriate judgement and insight. Progress Results/Orders Reviewed/noted all lab results: Yes Results/Orders Completed Orders - MARCELINO HAIRSTON MD Cyclobenzaprine Tablet (Flexeril Tablet) (11/18/24 08:35) Naproxen Tablet (Naprosyn Tablet) (11/18/24 08:35) Vital Signs 11/18/24 06:34 Temp 97.8 Pulse 63 Resp 18 B/P (MAP) 157/100 Pulse Ox 100 Re-Evaluation Re-Evaluation : Re-Evaluation: Improved Progress Patient was seen and examined. Patient is given reassurance. Patient was requesting Toradol shots but review of the medical record shows that he has been seen in the emergency room excessively for the same complaint requesting medications that can simply be filled on an outpatient basis. Patient is staying at the [facility] he also [facility] to [facility] which is steps away from where he has his meals yet chooses to come [facility]. Patient was given pain medications and a refill and discharged home but no Toradol naproxen and Flexeril and was prescribed the same patient has no acute emergency at this time. This is acute on chronic pain as well as medical noncompliance Medical Decision Making Additional info obtained from: old records Differential Dx:Considerations: Include: Aortic dissection, Appendicitis, Bowel obstruction, Cholelithiasis, Cholangitis, DJD, Fracture, Hepatitis, HNP, Musculoskeletal pain, Pancreatitis, Pyelonephritis, Renal infarction, Strain, Urinary obstruction, Urolithiasis, Urinary tract infection, Other Departure Time of Disposition: 08:40 Disposition: 01 HOME / SELF CARE / HOMELESS Impression: Primary Impression: Acute on chronic back pain Condition: Stable Discharge Instructions: Chronic Back Pain Additional Instructions: Please follow up with the [place] [facility] on 11/20/2024 to receive help for your chronic issues. Referrals: NO PRIMARY CARE PROVIDER (PCP) Prescriptions Cyclobenzaprine* (Cyclobenzaprine*) 10 Mg Tablet 1 TAB PO HS for muscle spasms for 30 Days, #30 TAB 0 Refills Prov: MARCELINO HAIRSTON MD 11/18/24 Naproxen (Naproxen) 500 Mg Tablet 1 TAB PO Q12H, #20 TAB Prov: MARCELINO HAIRSTON MD 11/18/24 Education Educated: Patient Educated regarding: diagnosis, treatment, need for follow up Signature Scribe Signature: Scribed for Marcelino Hairston MD by Krystal Gomez . 11/18/24 08:41 Attestation: The note accurately reflects work and decisions made by me.Marcelino Hairston MD 11/18/24 08:30 MARCELINO HAIRSTON MD November 18, 2024 08:31 KRYSTAL BUENO November 18, 2024 08:41
[2024-11-18] MEDS ORDERED: NAPR-56 PO (08:33)
[2024-11-18] MEDS ORDERED: CYCL-1 PO (08:33)
[2024-11-18] MEDS ORDERED: naproxen 500mg tablet PO ONE (08:35)
[2024-11-18] MEDS ORDERED: cyclobenzaprine 10mg tablet PO ONE (08:35)
[2024-11-18 09:07] VITALS: BP 138/76; PULSE 96; RESP 16; TEMP 97.8; O2SAT 99
== END 2024-11-18 09:11 | disposition home or self-care (01) ==
LOC: ER 06:10
DX: G89.29 Other chronic pain (principal); M54.9 Dorsalgia, unspecified; G43.909 Migraine, unspecified, not intractable, without status migrainosus; F31.9 Bipolar disorder, unspecified; F12.90 Cannabis use, unspecified, uncomplicated; Z59.00 Homelessness unspecified; Z79.899 Other long term (current) drug therapy
CPT/HCPCS: 99281; 99283

== ENCOUNTER 2024-11-23 10:06 | Emergency (ER) | payer MEDICAID ==
[~2024-11-23] VITALS: Ht 170.2 cm; Wt 56.8 kg
[~2024-11-23 10:06] MED LIST changes: +CYCL-1 PO
[2024-11-23 10:08] VITALS: BP 140/90; PULSE 86; RESP 17; TEMP 98.1; O2SAT 100
[2024-11-23] MEDS ORDERED: ondansetron/PF 4mg/2ml inj IV ONE (11:15)
[2024-11-23] MEDS ORDERED: morphine 4 MG/ML inj SYRINge IV ONE (11:15)
[2024-11-23] MEDS ORDERED: VANCOMYCIN 1GM 200ML H20 (PEG) 200 ML IV ONE (11:15)
[2024-11-23] MEDS ORDERED: quetiapine 100mg tablet PO SCH (11:15)
[2024-11-23] MEDS ORDERED: piperacillin/tazo 4.5gm/100ml 100 ML IV ONE (11:15)
[2024-11-23] MEDS ORDERED: vancomycin/NS 1 GM ADD-VANTAGE 250 ML IV ONE (11:25)
--- NOTE | 2024-11-23 11:28 | ELECTROCARDIOGRAPH REPORT ---
[facility] Test Date: 2024-11-23 Test Time: 11:25:37 Pat Name: ROSS CRENSHAW Department: [facility]- Patient ID: [facility]-[id number] Room: Gender: M Monitoring Tech: : [id number] Requested By: PADDY YUAN Order Number: [id number] Reading MD: Measurements Intervals [place] Rate: 75 P: -45 [place]: 110 QRS: -10 QRSD: 87 T: 36 QT: 405 QTc: 453 Interpretive Statements Sinus or ectopic atrial rhythm Borderline short [place] interval Probable left atrial enlargement Please click the below link to view image of tracing.
--- NOTE | 2024-11-23 11:39 | Physician Documentation ---
History of Present Illness ~ Chief Complaint: Arm Pain Stated Complaint: R ARM INFECTION Time Seen by MD: 10:43 Primary Medical Doctor: gume Faulkner 54-year-old male presenting with left forearm redness, swelling and pain that has been ongoing for the past couple of days. Patient states that he received a COVID shot in his left arm several days ago and thinks it is related to that. He denies any trauma. He states that he is homeless and sleeps in a tent. States that the pain is throbbing and becoming more and more severe. He denies any fever, chills or any other associated symptoms. He states that he used to use IV drugs but has not in a long time. Tetanus within 5 years: No Medication Reconciliation Allergies: Coded Allergies: No Known Allergies (Unverified , 11/18/24) Scheduled Cyclobenzaprine* (Cyclobenzaprine*), 1 TAB PO HS Ferrous Sulfate* (Ferrous Sulfate*), 1 TAB PO TID, (Reported) Meloxicam (Meloxicam), 1 TAB PO DAILY, (Reported) Naproxen (Naproxen), 1 TAB PO Q12H Omeprazole (Prilosec), 1 CAP PO DAILY Pantoprazole Sodium (Pantoprazole Sodium), 40 MG PO BID, (Reported) Quetiapine Fumarate (Seroquel), 100 MG PO HS, (Reported) Quetiapine Fumarate (Seroquel), 1 TAB PO HS Discontinued Medications Naproxen (Naproxen), 1 TAB PO DAILY Discontinued Reason: Auto Discontinued Past Medical History Past Medical History: Migraine, Hepatitis C, Chronic Back Pain, Bipolar Patient History: Patient reports no known family medical history. Smoking Status: Current every day smoker Alcohol Use: Sober Drug Use: marijuana Lives with: Other Lives In: Homeless Review of Systems All Other Systems at this time: Reviewed and Negative Physical Exam Vital Signs: Temperature: 98.1, Source: Oral, Heart Rate: 86, Respiratory Rate: 17, BP: 140/90, Pulse Oximetry: 100, Weight: 56.820 Oxygen Flow Rate: 0 Physical Exam I have reviewed the triage vitals. CONST: Well developed and well nourished. In no acute distress HENT: Head Atraumatic EYES: Pupils are equal, round and reactive to light. Normal conjunctiva NECK: Normal range of motion. Supple. CARDIO: Normal rate and regular rhythm. No murmurs, rubs, or gallops. S1, S2. PULM/CHEST: No respiratory distress. Lungs clear to auscultation. No wheeze ABD: Soft and nontender. Nondistended. Bowel sounds normal. No guarding. : Exam deferred MSK: Left forearm is erythematous and indurated. There is significant edema ranging from the elbow all the way down to the hand. There is also skin excoriation and healing wounds NEURO: Alert and oriented to person, place and time. Moving all extremities SKIN: Warm and dry. PSYCH: Normal mood and affect. Good eye contact. Occasional erratic behavior. Progress Results/Orders Results/Orders Orders - PADDY YUAN MD ESR (11/23/24 11:14) Culture Blood (11/23/24 11:14) Chest,Single View (11/23/24 11:30) Hs Troponin I W Calculations (11/23/24 13:14) Completed Orders - PADDY YUAN MD Electrocardiogram (11/23/24 11:14) Cbc/Diff (11/23/24 11:14) D-Dimer (11/23/24 11:14) C-Reactive Protein (11/23/24 11:14) Pt Inr (11/23/24 11:14) PTT (11/23/24 11:14) Chest,Single View (11/23/24 11:30) MG (11/23/24 11:14) Piperacillin/Tazo 4.5gm/100ml (Zosyn 4.5 (11/23/24 11:15) Normal Saline 1000ml (Sodium Chloride 10 (11/23/24 11:15) CMP (11/23/24 11:14) Hs Troponin I W Calculations (11/23/24 11:14) Lacticsepsis (11/23/24 11:14) Procalcitonin (11/23/24 11:14) Morphine 4mg/Ml Inj. (Morphine Inj.) (11/23/24 11:15) Ondansetron Inj. (Zofran 4mg/2ml Vial) (11/23/24 11:15) Quetiapine Fumarate Tablet (Seroquel) (11/23/24 11:15) Vancomycin/Ns 1 Gm Add-[place] (Vancomyc (11/23/24 11:25) Diazepam Inj (Valium Inj) (11/23/24 11:40) Vital Signs 11/23/24 11/23/24 10:08 12:19 Temp 98.1 Pulse 86 Resp 17 B/P (MAP) 140/90 Pulse Ox 100 O2 Flow Rate 0 Laboratory Tests Test 11/23/24 11:35 White Blood Count 12.5 H Red Blood Count 3.93 L Hemoglobin 11.1 L Hematocrit 33.9 L Mean Corpuscular Volume 86.3 Mean Corpuscular Hemoglobin 28.3 Mean Corpuscular Hemoglobin Concent 32.8 L Red Cell Distribution Width 15.9 H Platelet Count 192 Mean Platelet Volume 8.3 Neutrophils (%) (Auto) 78.2 H Lymphocytes (%) (Auto) 11.0 L Monocytes (%) (Auto) 7.4 Eosinophils (%) (Auto) 2.9 Basophils (%) (Auto) 0.5 Neutrophils # (Auto) 9.8 H Lymphocytes # (Auto) 1.4 Monocytes # (Auto) 0.9 Eosinophils # (Auto) 0.4 Basophils # (Auto) 0.1 CBC Comment Platelet Estimate Normal Red Blood Cell Morphology Perf Basophilic Stippling Anisocytosis 1+ Tear Drop Cells Few Schistocytes Few Prothrombin Time 11.2 INR International Normalized Ratio 1.1 Activated Partial Thromboplast Time 29 D-Dimer 1.03 H D-Dimer Comment Coagulation Comments Sodium Level 144 Potassium Level 3.5 Chloride Level 109 H Carbon Dioxide Level 29.3 Anion Gap 6 L Blood Urea Nitrogen 19 H Creatinine 0.87 Estimated GFR/1.73 m2 > 90 BUN/Creatinine Ratio 21.8 H Glucose Level 87 Lactic Acid Level 1.2 Calcium Level 8.5 Magnesium Level 1.8 Total Bilirubin 0.4 Aspartate Amino Transf (AST/SGOT) 35 Alanine Aminotransferase (ALT/SGPT) 28 Alkaline Phosphatase 100 Troponin I High Sensitivity 8 C-Reactive Protein 11.46 H Total Protein 6.7 Albumin 2.8 L Globulin 3.9 Albumin/Globulin Ratio 0.7 L Procalcitonin 0.07 Chemistry Comments EKG/XRAY/CT/US/VASC/MRI EKG : Additional Comment EKG as interpreted by ED MD indicating sinus rhythm with a rate of 75 beats per minute, no ST elevations or other ischemia, normal axis Chest X-Ray : Additional Comments DI CHEST,SINGLE VIEW, HISTORY: sepsis COMPARISON: None None TECHNICAL DATA: 1 view of the chest was obtained. FINDINGS: Lines and tubes: None Cardiomediastinal silhouette: normal Pulmonary vasculature: normal Lung expansion: normal Lung airspace: normal Lung interstitium: normal Pleura: normal Pneumothorax: no Bones: Old healing right sided posterior rib fractures. Other: no IMPRESSION: No acute intrathoracic abnormality. Old healing right sided posterior rib fractures. Medical Decision Making Additional Comment 54-year-old male presenting with left arm pain and swelling. Workup was started with labs and medications ordered. Patient exhibited erratic behavior and once tried to leave the ED with IV in place. He was redirected but then again grew impatient stated that he wanted to leave. We discussed his condition in the risks of leaving against medical advice. He stated that he did not care and signed out against medical advice and left. Departure Disposition: 07 LEFT AGAINST MEDICAL ADVICE Impression: Primary Impression: Left arm cellulitis Referrals: NO PRIMARY CARE PROVIDER (PCP) Signature Scribe Signature: 1 Attestation: 1 PADDY YUAN MD November 23, 2024 11:39
[2024-11-23] MEDS ORDERED: diazepam inj 5 MG/ML inj. IV ONE (11:40)
--- NOTE | 2024-11-23 11:44 | RADIOLOGY REPORT ---
DI CHEST,SINGLE VIEW, HISTORY: sepsis COMPARISON: None None TECHNICAL DATA: 1 view of the chest was obtained. FINDINGS: Lines and tubes: None Cardiomediastinal silhouette: normal Pulmonary vasculature: normal Lung expansion: normal Lung airspace: normal Lung interstitium: normal Pleura: normal Pneumothorax: no Bones: Old healing right sided posterior rib fractures. Other: no IMPRESSION: No acute intrathoracic abnormality. Old healing right sided posterior rib fractures.
[2024-11-23 11:52] LABS: BASOPHILS # (AUTO) 0.1 X10'3 (0-0.2); BASOPHILS % (AUTO) 0.5 % (0-1); EOSINOPHILS # (AUTO) 0.4 X10'3 (0-0.9); EOSINOPHILS % (AUTO) 2.9 % (0-6); HEMATOCRIT 33.9 % (42.0-52.0); HEMOGLOBIN 11.1 g/dl (14.0-17.9); LYMPHOCYTES # (AUTO) 1.4 X10'3 (1.1-4.8); MEAN CORPUSCULAR HEMOGLOBIN 28.3 PG (27.0-31.0); MEAN CORPUSCULAR HGB CONC 32.8 g/dL (33.0-36.5); MEAN CORPUSCULAR VOLUME 86.3 FL (78-98); MEAN PLATELET VOLUME 8.3 FL (7.4-10.4); MONOCYTES # (AUTO) 0.9 X10'3 (0-0.9); MONOCYTES % (AUTO) 7.4 % (2-12); NEUTROPHILS # (AUTO) 9.8 X10'3 (1.8-7.7); NEUTROPHILS % (AUTO) 78.2 % (42-75); PLATELET COUNT 192 X10'3 (140-440); RED BLOOD COUNT 3.93 X10'6 (4.70-6.10); RED CELL DISTRIBUTION WIDTH 15.9 % (11.5-14.5); WHITE BLOOD COUNT 12.5 X10'3 (4.5-11.0)
[2024-11-23] MEDS: normal saline 1000ML IV soln IVB ONE (11:58)
[2024-11-23 12:00] LABS: APTT 29 SECONDS (22-32); D-DIMER 1.03 MG/L FEU (0-0.50); INR 1.1 INR; PROTHROMBIN TIME 11.2 SECONDS (9.0-12.0)
[2024-11-23 12:03] LABS: ALANINE AMINOTRANSFERASE 28 U/L (12-78); ALBUMIN 2.8 G/DL (3.4-5.0); ALBUMIN/GLOBULIN RATIO 0.7 (1.1-1.5); ALKALINE PHOSPHATASE 100 IU/L (46-116); ANION GAP 6 (8-16); ASPARTATE AMINO TRANSFERASE 35 U/L (10-37); BILIRUBIN,TOTAL 0.4 MG/DL (0.1-1.0); BLOOD UREA NITROGEN 19 MG/DL (7-18); BUN/CREATININE RATIO 21.8 (10.0-20.0); C-REACTIVE PROTEIN 11.46 MG/DL (0.0-0.5); CALCIUM 8.5 MG/DL (8.5-10.1); CHLORIDE 109 MMOL/L (99-107); CREATININE 0.87 MG/DL (0.60-1.10); GLUCOSE 87 MG/DL (70-104); MAGNESIUM 1.8 MG/DL (1.5-2.4); POTASSIUM 3.5 MMOL/L (3.5-5.1); SODIUM 144 MMOL/L (135-145); TOTAL CARBON DIOXIDE 29.3 MMOL/L (24-32); TOTAL PROTEIN 6.7 G/DL (6.4-8.2); eCRCL 76 ML/MIN; eGFR > 90 ML/MIN
[2024-11-23 12:14] LABS: ANISOCYTOSIS 1+; PLATELET ESTIMATE NORMAL; SCHISTOCYTES FEW; TEAR DROP CELLS FEW
== END 2024-11-23 12:07 | disposition left against medical advice (07) ==
LOC: ER 10:07
DX: L03.114 Cellulitis of left upper limb (principal); F12.90 Cannabis use, unspecified, uncomplicated; F17.200 Nicotine dependence, unspecified, uncomplicated; G43.909 Migraine, unspecified, not intractable, without status migrainosus; F31.9 Bipolar disorder, unspecified; Z59.00 Homelessness unspecified; Z79.899 Other long term (current) drug therapy
CPT/HCPCS: 36415; 71045; 80053; 83605; 83735; 84145; 84484; 85008; 85025; 85379; 85610; 85651; 85730; 86140; 87040; 93005; 99285; J7030

== ENCOUNTER 2024-12-08 17:29 | Emergency (ER) | payer MEDICAID ==
[~2024-12-08] VITALS: Ht 170.2 cm; Wt 46.2 kg
[2024-12-08] MEDS ORDERED: ACET-1025 PO (18:44)
--- NOTE | 2024-12-08 18:45 | Physician Documentation ---
History of Present Illness ~ Chief Complaint: Rash Stated Complaint: "BOTH ARMS RED AND INFECTED" Time Seen by MD: 17:45 Primary Medical Doctor: gume Faulkner Patient is seen today with complaints of his arms getting sunburn a week or so ago. He is concerned that he might have infection as he has had some blisters rupture in his picking some sores on his arms. Patient denies any fever or chills and has no other concern or complaint at this time. Medication Reconciliation Allergies: Coded Allergies: No Known Allergies (Unverified , 11/18/24) Scheduled Cyclobenzaprine* (Cyclobenzaprine*), 1 TAB PO HS Ferrous Sulfate* (Ferrous Sulfate*), 1 TAB PO TID, (Reported) Meloxicam (Meloxicam), 1 TAB PO DAILY, (Reported) Naproxen (Naproxen), 1 TAB PO Q12H Pantoprazole Sodium (Pantoprazole Sodium), 40 MG PO BID, (Reported) Quetiapine Fumarate (Seroquel), 100 MG PO HS, (Reported) Quetiapine Fumarate (Seroquel), 1 TAB PO HS Discontinued Medications Omeprazole (Prilosec), 1 CAP PO DAILY Discontinued Reason: Auto Discontinued Past Medical History Past Medical History: Migraine, Hepatitis C, Chronic Back Pain, Bipolar Patient History: Patient reports no known family medical history. Alcohol Use: Sober Drug Use: marijuana Lives with: Other Lives In: Homeless Review of Systems Constitutional: Denies: chills, fever, weakness Eyes: Denies: pain, blurred vision ENT: Denies: ear pain, nose pain, throat pain, mouth pain Respiratory: Denies: cough, shortness of breath Cardiovascular: Denies: chest pain, palpitations Gastrointestinal: Denies: abdominal pain, nausea, vomiting Genitourinary: Denies: burning, dysuria Male Genitalia: Denies: penile discharge, testicular pain Neurological: Denies: headache, dizziness Musculoskeletal: Denies: pain, swelling Integumentary: Denies: rash, lesions Allergic/Immunologic: Denies: hives, itching Hematologic/Lymphatic: Denies: no symptoms reported Psychiatric: Denies: depression, anxiety Physical Exam Vital Signs: Temperature: 98.9, Source: Temporal, Heart Rate: 96, Respiratory Rate: 17, BP: 172/110, Pulse Oximetry: 100, Weight: 46.200 Physical Exam General: Awake and Alert, no acute distress. HEENT: Conjunctiva pink, Sclera clear, Mucus Membranes moist. Neck: Supple without masses and tenderness. Resp: Unlabored. Lungs clear to auscultation bilaterally. Heart: Regular Rate and rhythm, normal S1 and S2 without murmur, rub or gallop. Extremities: No cyanosis,clubbing or edema. Skin: Patient on exam does have erythema of the dorsum of his arms consistent with sunburn. Patient also has lesions on his arms consistent with a potato picker's nodules and excoriations and recently ruptured blisters. Progress Results/Orders Results/Orders Vital Signs 12/08/24 17:40 Temp 98.9 Pulse 96 Resp 17 B/P (MAP) 172/110 Pulse Ox 100 Medical Decision Making Findings Patient is seen today with complaints of his arms getting sunburn a week or so ago. He is concerned that he might have infection as he has had some blisters rupture in his picking some sores on his arms. Patient denies any fever or chills and has no other concern or complaint at this time. Patient was given prescription for Tylenol sent to patient's pharmacy and patient will follow up with primary care in 2-5 days if no better as needed sooner. Return to ED with any worsening, concerning or changing symptoms. I do not appreciate any sign of cellulitis or infection. Patient will stop picking at lesions on his arms. Departure Disposition: 01 HOME / SELF CARE / HOMELESS Impression: Primary Impression: Sunburn of second degree Condition: Stable Discharge Instructions: Sunburn, Adult, [id number] Additional Instructions: Patient was given prescription for Tylenol sent to patient's pharmacy and patient will follow up with primary care in 2-5 days if no better as needed sooner. Return to ED with any worsening, concerning or changing symptoms. I do not appreciate any sign of cellulitis or infection. Patient will stop picking at lesions on his arms. Referrals: NO PRIMARY CARE PROVIDER (PCP) Prescriptions Acetaminophen (Tylenol Extra Strength) 500 Mg Tablet 2 TAB PO Q6H PRN PRN for pain or fever for 7 Days, #56 TAB Prov: MATT TAN 12/08/24 Signature Scribe Signature: No scribe Attestation: No scribe MATT TAN Dec 08, 2024 18:45
[2024-12-08 18:54] VITALS: BP 170/99; PULSE 94; RESP 18; TEMP 98.6; O2SAT 98
== END 2024-12-08 18:55 | disposition home or self-care (01) ==
LOC: ER 17:30
DX: L55.1 Sunburn of second degree (principal); F31.9 Bipolar disorder, unspecified; G43.909 Migraine, unspecified, not intractable, without status migrainosus; F12.90 Cannabis use, unspecified, uncomplicated; F10.90 Alcohol use, unspecified, uncomplicated; Y90.9 Presence of alcohol in blood, level not specified
CPT/HCPCS: 99282

== ENCOUNTER 2024-12-13 10:19 | Emergency (ER) | payer MEDICAID ==
[~2024-12-13] VITALS: Ht 170.2 cm; Wt 48.6 kg
[~2024-12-13 10:19] MED LIST changes: +ACET-1025 PO; -OMEP40CA21 PO
--- NOTE | 2024-12-13 10:58 | Physician Documentation ---
History of Present Illness ~ Chief Complaint: Rash Stated Complaint: BILATERAL ARM SORES Time Seen by MD: 10:36 OK to notify your PCP?: Yes Primary Medical Doctor: gume cai Source: patient Mode of Arrival: POV Exam Limitations: no limitations HPI 54-year-old male presents with bilateral arm rash and sores for the past 4 weeks. He has been started on Keflex in his currently on day 3 of the day 5 q.i.d. prescription. He is also using bacitracin ointment but has not applied today. He reports that the rash is not worsening but has just not improved. Medication Reconciliation Allergies: Coded Allergies: No Known Allergies (Unverified , 11/18/24) Scheduled Cyclobenzaprine* (Cyclobenzaprine*), 1 TAB PO HS Ferrous Sulfate* (Ferrous Sulfate*), 1 TAB PO TID, (Reported) Meloxicam (Meloxicam), 1 TAB PO DAILY, (Reported) Naproxen (Naproxen), 1 TAB PO Q12H Pantoprazole Sodium (Pantoprazole Sodium), 40 MG PO BID, (Reported) Quetiapine Fumarate (Seroquel), 100 MG PO HS, (Reported) Quetiapine Fumarate (Seroquel), 1 TAB PO HS Scheduled PRN Acetaminophen (Tylenol Extra Strength), 2 TAB PO Q6H PRN PRN for pain or fever Discontinued Medications Omeprazole (Prilosec), 1 CAP PO DAILY Discontinued Reason: Auto Discontinued Past Medical History Past Medical History: Migraine, Hepatitis C, Chronic Back Pain, Bipolar Patient History: Patient reports no known family medical history. Alcohol Use: Sober Drug Use: marijuana Lives with: Other Lives In: Homeless Review of Systems All Other Systems at this time: Reviewed and Negative Physical Exam Vital Signs: RN Vital Signs have been reviewed: Yes, Temperature: 98.1, Source: Oral, Heart Rate: 66, Respiratory Rate: 16, BP: 129/90, Pulse Oximetry: 99, Weight: 48.640 Oxygen Flow Rate: 0 Pulse Oximetry Reflects: adequate oxygenation Physical Exam General: Alert, no distress. HEENT: No injection, moist mucous membranes. Neck: Full range of motion. Respiratory: No respiratory distress, equal chest rise and fall. Chest: No accessory muscle use. Cardiovascular: Regular rate and rhythm. Gastrointestinal: Nondistended. Extremities: Normal range of motion, no deformity. Neurologic: Oriented x4. Psychiatric: Normal mood and affect. Skin: Diffuse erythematous maculopapular rash with scabbing to posterior portion of bilateral arms, normal temperature and not circumferential. Diffuse scabs to rash on face and scalp, not warm to the touch or erythematous. Progress Results/Orders Results/Orders Vital Signs 12/13/24 10:25 Temp 98.1 Pulse 66 Resp 16 B/P (MAP) 129/90 Pulse Ox 99 O2 Flow Rate 0 Medical Decision Making Additional info obtained from: old records Findings 54-year-old male with diffuse rash to bilateral arms which is red but not warm to the touch or circumferential. He is afebrile and not tachycardic. He has been taking Keflex 4 times a day and is on day 3 of a 5 day regimen. I will extend this to a full 10 day regimen and add in Septra ds as well. He does not have a personal history of MRSA although he is homeless and around many other people who were homeless as well which increases the risk. These prescriptions were sent to his pharmacy and the 1st dose of Septra was given while here in the department. He was educated to continue using the bacitracin ointment and to try not to pick at the scabs on his rash. He should return back here for any new or worsening symptoms. Differential Dx:Considerations: Include: Abscess, AIDS/HIV, Erysipelas, Gangrene, Herpes zoster, Herpes simplex, Molluscum contagiosum, Pityriasis rosea, Psoriaisis, Scabies Departure Disposition: HOME / SELF CARE / HOMELESS Impression: Primary Impression: Cellulitis Condition: Stable Discharge Instructions: Cellulitis, Adult Additional Instructions: Please take the rest of your current Keflex prescription and then continue with the 5 day script that I sent in for total of 10 days of Keflex. I have sent in a prescription for another antibiotic for 10 days as well. Please take all antibiotics as prescribed and use the bacitracin ointment you currently have. Try not to pick at the scabs. If you notice worsening rash, fevers, altered level of consciousness please be seen immediately. Follow up with your primary care provider or the [facility] van within the next 3 days to assess for rash healing or signs and symptoms of worsening infection. You can return back here for any new or worsening symptoms. Referrals: NO PRIMARY CARE PROVIDER (PCP) Prescriptions Sulfamethoxazole/Trimethoprim (Septra Ds Tab) 800 Mg/160 Mg Tablet 1 TAB PO Q12H for 10 Days, #20 TAB Prov: NICOLE DIGGS 12/13/24 Cephalexin*Monohydrate* (Keflex*) 500 Mg Capsule 1 CAP PO Q6H for 5 Days, #20 CAP Prov: NICOLE DIGGS 12/13/24 Education Educated: Patient Educated regarding: diagnosis, treatment, prognosis, need for follow up Signature Scribe Signature: . Attestation: Scribed for Nicole Diggs by Nicole Green NP . 12/13/24 11:14 NICOLE DIGGS Dec 13, 2024 10:58
[2024-12-13] MEDS ORDERED: CEPH-585 PO (11:11)
[2024-12-13] MEDS ORDERED: SULF1TAB45 PO (11:11)
[2024-12-13] MEDS: sulfamethoxazole/trimethoprim DS (800/160mg) tablet PO ONE (11:23)
[2024-12-13 11:29] VITALS: BP 122/68; PULSE 74; RESP 16; TEMP 98.1; O2SAT 98
== END 2024-12-13 11:25 | disposition home or self-care (01) ==
LOC: ER 10:19
DX: L03.114 Cellulitis of left upper limb (principal); L03.113 Cellulitis of right upper limb; G43.909 Migraine, unspecified, not intractable, without status migrainosus; F32.A Depression, unspecified; F12.90 Cannabis use, unspecified, uncomplicated; F10.90 Alcohol use, unspecified, uncomplicated
CPT/HCPCS: 99283

== ENCOUNTER 2024-12-18 09:12 | Inpatient (IN) | payer MEDICAID ==
[~2024-12-18] VITALS: Ht 170.2 cm; Wt 51.1 kg
[~2024-12-18 09:12] MED LIST changes: -ACET-1025 PO; +CEPH-585 PO; +SULF1TAB45 PO
[2024-12-18] MEDS ORDERED: mag hydrox/Alum hydrox/simeth 30ml oral suspension PO PRN (11:20)
[2024-12-18] MEDS ORDERED: loperamide 2mg capsule PO PRN (11:20)
[2024-12-18] MEDS: ibuprofen tablet 400 MG TABLET PO PRN (14:33)
[2024-12-18] MEDS: silver sulfadiazine cream 50gm TP PRN (14:34)
[2024-12-18 14:48] VITALS: RESP 20; O2SAT 99
[2024-12-18] MEDS: pantoprazole 40mg Tablet.DR PO ONE (15:40)
[2024-12-18] MEDS: nicotine 21mg patch - 24 hr TD ONE (15:42)
[2024-12-18 16:15] VITALS: BP 137/97; PULSE 78; RESP 20; TEMP 97.7; O2SAT 99
[2024-12-18] MEDS: ondansetron 4mg rapidly disintigrating tab PO PRN (17:19)
[2024-12-18 18:46] VITALS: RESP 20
[2024-12-18 19:16] VITALS: BP 131/81; PULSE 62; RESP 16; TEMP 99.2; O2SAT 99
[2024-12-18] MEDS: pantoprazole 40mg Tablet.DR PO SCH (20:16)
[2024-12-18] MEDS: sulfamethoxazole/trimethoprim DS (800/160mg) tablet PO SCH (20:16)
[2024-12-19 07:30] VITALS: BP 122/87; PULSE 89; RESP 12; TEMP 97.5; O2SAT 98
[2024-12-19] MEDS ORDERED: pantoprazole 40mg Tablet.DR PO SCH (07:30)
[2024-12-19] MEDS: nicotine 21mg patch - 24 hr TD SCH (08:00)
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
[2024-12-19 18:36] VITALS: RESP 14
[2024-12-19] MEDS: HYDROcodone/acetaminophen 10/325mg tab PO PRN (19:15)
[2024-12-19 19:30] VITALS: BP 114/82; PULSE 79; RESP 16; TEMP 99.6; O2SAT 96
--- NOTE | 2024-12-19 19:41 | HISTORY AND PHYSICAL-Residence ---
History & Physical Providers to Resident Creating Document: RAÚLNANI CABRERA, RES ~ History of Present Illness Primary Medical Doctor: gume cai Reason for Admit\Complaint: Mental health consult History of Present Illness The patient is a 54-year-old male who was admitted to the mental health unit on 5150 hold. He went to [facility] ED with suicidal ideation with a plan to slit his wrists. He called 911. He is tearful and suicidal throughout the physical. Patient has eczematous lesions all over the body including his scalp. The patient had a major sunburn three weeks ago and it became infected. He is currently on Bactrim and Keflex. Patient denied further history taking and physical examination. Allergies: Coded Allergies: No Known Allergies (Unverified , 11/18/24) Home Medications Home Medications Active Septra Ds Tab (Trimethoprim/Sulfamethoxazole) 800 Mg/160 Mg Tablet 1 Tab PO Q12H 10 Days Cyclobenzaprine* (Cyclobenzaprine HCl) 10 Mg Tablet 1 Tab PO HS 30 Days Reported Meloxicam 15 Mg Tablet 1 Tab PO DAILY Ferrous Sulfate* (Ferrous Sulfate) 325 Mg Tablet 1 Tab PO TID Pantoprazole Sodium 40 Mg Tablet.dr 40 Mg PO BID Seroquel (Quetiapine Fumarate) 100 Mg Tablet 100 Mg PO HS Past Medical History Past Medical History Patient not willing to give history Past Surgical History Surgical History Comment Patient not willing to give history Family History Family History: FH: lung cancer GRANDFATHER OR GRANDMOTHER Past Social History Social History Comment Patient not willing to give history Alcohol Use: Sober Drug Use: Marijuana Lives with: Other Lives In: Homeless ROS ROS Patient not willing to give history Exam Vitals: Vital Signs Date Time Temp Pulse Resp B/P (MAP) Pulse Ox O2 Delivery O2 Flow Rate FiO2 12/19/24 19:30 99.6 79 16 114/82 (93) 96 Room Air General: Extensive excoriating lesions all over his body including scalp Patient refused physical examination Additional Plan Suicidal ideation Management as per Psychiatry. Sunburn and diffuse excoriating lesions Eucerin emollient thrice daily. Concrete 10 q.4h PRN Wound care. Disposition: Hospitalist we will continue to follow the patient during the course of his hospital stay. Nani Olsen MD Internal Medicine Resident, PGY-1 Date of Service: Dec 19, 2024 Billing Provider: RJ MURRELL MD Common Visit Codes: [id number] INP/OBS CARE (HIGH) NANI OLSEN, RES Dec 19, 2024 19:41 RJ MURRELL MD Dec 22, 2024 16:40
[2024-12-19 20:11] LABS: MEAN PLATELET VOLUME 7.6 FL (7.4-10.4)
[2024-12-19 20:13] LABS: RED CELL DISTRIBUTION WIDTH 15.4 % (11.5-14.5)
[2024-12-19 20:34] LABS: CHOL/HDL RATIO 2.9 (0.00-4.99); CREATININE 1.20 MG/DL (0.60-1.10); LDL CHOLESTEROL 71 MG/DL (50-100); TOTAL CARBON DIOXIDE 23.3 MMOL/L (24-32); eCRCL 44 ML/MIN; eGFR 63 ML/MIN
[2024-12-19] MEDS: mineral oil/petrolatum, white cream 113gm jar TP SCH (21:19)
[2024-12-20 08:00] VITALS: BP 114/87; PULSE 91; RESP 16; TEMP 98.2; O2SAT 93
[2024-12-20] MEDS: lactose-reduced food (Ensure High Protein) 237ml bottle PO SCH (10:55)
[2024-12-20] MEDS: nicotine 14mg patch - 24hr TD SCH (14:21)
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
[2024-12-20 19:00] VITALS: RESP 18; O2SAT 99
[2024-12-20 20:00] VITALS: BP 123/64; PULSE 68; RESP 18; TEMP 97.2; O2SAT 99
[2024-12-21 08:00] VITALS: BP 103/73; PULSE 96; RESP 14; TEMP 98.7; O2SAT 100
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
[2024-12-21 19:40] VITALS: RESP 16; O2SAT 99
[2024-12-21 20:00] VITALS: BP 113/71; PULSE 81; RESP 16; TEMP 98.8; O2SAT 96
[2024-12-21] MEDS: pantoprazole 40mg Tablet.DR PO SCH (20:20)
[2024-12-21] MEDS: HYDROcodone/acetaminophen 10/325mg tab PO PRN (20:24)
--- NOTE | 2024-12-21 20:40 | PROGRESS NOTE ---
Daily Progress Note Providers to CC ~ Antibiotic Timeout Antibiotic Ordered?: No Subjective Patient was seen in mental health unit in presence of nursing staff patient cooperated well denied any concern but is on narcotic pain medication q.4 hours. Getting treatment for excoriated skin lesion Objective Vital Signs Date Time Temp Pulse Resp B/P (MAP) Pulse Ox O2 Delivery O2 Flow Rate FiO2 12/21/24 20:24 16 12/21/24 19:40 99 Room Air 12/21/24 08:00 98.7 96 103/73 (83) Result Diagram: 12/19/24195812/19/241958 General-patient not in any acute distress, alert awake oriented, chronically ill-appearing, age-appropriate, looks comfortable HEENT-atraumatic normocephalic, neck supple without elevated JVD, no thyromegaly or carotid bruit. No lymphadenopathy bilaterally. Eyes-no icterus or pallor seen in eyes Chest-clear to auscultation bilaterally, breathing nonlabored no tachypnea, no wheezing, no crepitation, no crackles. Heart-S1-S2 normal, regular heart rate no murmur Abdomen bowel sounds positive on auscultation, soft nondistended nontender no guarding, no rigidity Skin - signs of chronic hyperpigmentation present over chest , both upper extremity Neurology-grossly intact, nonfocal alert awake Extremity- no pedal edema able to move all 4 extremities, ambulates Psychiatry - patient is not confused or agitated cooperated during physical examination Problem\Assessment\Plan Extensive excoriating lesions all over his body including scalp Patient refused physical examination Additional Plan Suicidal ideation Management as per Psychiatry. Sunburn and diffuse excoriating lesions Eucerin emollient thrice daily. [place] 10 q.4h PRN Wound care. Disposition: Hospitalist we will continue to follow the patient during the course of his hospital stay. Date of Service: Dec 21, 2024 Billing Provider: MAHAMED ESPINO MD Common Visit Codes: [id number] INP/OBS CARE(LOW) MAHAMED ESPINO MD Dec 21, 2024 20:40
[2024-12-22 06:12] LABS: HBSAG SCREEN Negative (Negative); HEP B CORE AB, IGM Negative (Negative); HEP B CORE AB, TOT Positive (Negative)
[2024-12-22 07:53] VITALS: BP 110/80; PULSE 96; RESP 12; TEMP 98.4; O2SAT 100
[2024-12-22] MEDS: MELOXICAM 7.5 MG TABLET PO SCH (08:00)
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
[2024-12-22 19:00] VITALS: RESP 18; O2SAT 100
[2024-12-22 20:00] VITALS: BP 114/57; PULSE 61; RESP 16; TEMP 98.2; O2SAT 99
[2024-12-23 07:00] VITALS: BP 117/84; PULSE 84; RESP 16; TEMP 97.1; O2SAT 96
[2024-12-23 08:00] VITALS: RESP 16; O2SAT 96
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
[2024-12-23 19:00] VITALS: O2SAT 99
--- NOTE | 2024-12-23 19:17 | PROGRESS NOTE ---
Daily Progress Note Providers to CC ~ Antibiotic Timeout Antibiotic Ordered?: Yes Subjective Patient was seen in his room he feels the skin lesion over the skin is getting better with treatment. Ambulating well pass the stools no other new concerns Objective Vital Signs Date Time Temp Pulse Resp B/P (MAP) Pulse Ox O2 Delivery O2 Flow Rate FiO2 12/23/24 15:04 16 12/23/24 08:00 96 Room Air 12/23/24 07:00 97.1 84 117/84 (95) Result Diagram: 12/19/24195812/19/241958 General-patient not in any acute distress, alert awake oriented, chronically ill-appearing, age-appropriate, looks comfortable HEENT-atraumatic normocephalic, neck supple without elevated JVD, no thyromegaly or carotid bruit. No lymphadenopathy bilaterally. Eyes-no icterus or pallor seen in eyes Chest-clear to auscultation bilaterally, breathing nonlabored no tachypnea, no wheezing, no crepitation, no crackles. Heart-S1-S2 normal, regular heart rate no murmur Abdomen bowel sounds positive on auscultation, soft nondistended nontender no guarding, no rigidity Skin - signs of chronic hyperpigmentation / eczematous rash present over chest , both upper extremity Neurology-grossly intact, nonfocal alert awake Extremity- no pedal edema able to move all 4 extremities, ambulates Psychiatry - patient is not confused or agitated cooperated during physical examination Problem\Assessment\Plan Extensive excoriating lesions all over his body including scalp Patient refused physical examination Additional Plan Suicidal ideation Management as per Psychiatry. Sunburn and diffuse excoriating lesions Eucerin emollient thrice daily. [place] 10 q.4h PRN Wound care. Disposition: Hospitalist we will continue to follow the patient during the course of his hospital stay. Date of Service: Dec 23, 2024 Billing Provider: MAHAMED ESPINO MD Common Visit Codes: [id number] INP/OBS CARE(LOW) MAHAMED ESPINO MD Dec 23, 2024 19:17
[2024-12-23 20:00] VITALS: BP 115/89; PULSE 89; TEMP 97; O2SAT 99
[2024-12-24 07:00] VITALS: BP 121/79; PULSE 77; RESP 12; TEMP 98.5; O2SAT 100
[2024-12-24 07:30] VITALS: RESP 12; O2SAT 100
[2024-12-24] MEDS: multivitamins, therapeutics tablet PO SCH (09:02)
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
[2024-12-24 19:00] VITALS: RESP 20; O2SAT 98
[2024-12-24 20:00] VITALS: BP 112/82; PULSE 71; RESP 20; TEMP 98.1; O2SAT 98
[2024-12-25 07:00] VITALS: RESP 16; O2SAT 100
[2024-12-25 08:00] VITALS: BP 110/75; PULSE 80; RESP 16; TEMP 96.8; O2SAT 100
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
--- NOTE | 2024-12-25 19:10 | PROGRESS NOTE- Residence ---
Progress Note - Resident Providers to CC Resident Creating Document: YOMI BROWN, BRIONNA ~ Antibiotic Timeout Antibiotic Ordered?: Yes Subjective The patient has been evaluated in mental health. The patient currently denies any medical problems. Objective Vital Signs Date Time Temp Pulse Resp B/P (MAP) Pulse Ox O2 Delivery O2 Flow Rate FiO2 12/25/24 08:00 96.8 80 16 110/75 (87) 100 Room Air Physical exam: General: Well alert, well oriented, not confused, not agitated, not in acute distress, well cooperated during the physical. HEENT: Conjunctive are pink, sclerae clear, no icterus, pupil is equal in both sides, reactive to light, no ear discharge, no pharyngeal erythema or an edema. Neck: Supple, no JVD, no lymphadenopathy and thyromegaly. Chest: Equal air entry on both lungs, no additional sounds no rhonchi no wheezing at the moment. Cardiovascular: S1-S2 regular sinus rhythm and, regular rate, no gallops, no rubs, no murmurs Abdomen: No visible peristalsis, Bowel sounds present on auscultation, soft, nontender, no guarding, no rigidity Extremities: No obvious deformities, no pitting edema bilaterally, capillary refill intact, peripheral pulsations are intact on both sides Central Nervous System: No focal neurological deficits, no motor or sensory weakness in all 4 extremities, could move all 4 extremities, 2+ deep tendon reflexes, negative Babinski. Musculoskeletal: No joint swelling, deformities, inflammations, and no scoliosis and back tenderness Skin: Warm and dry. Presence of rash the level of the chest upper extremities- as per patient improving. Assessment Assessment 54 years old male patient admitted to mental health unit due to suicidal ideation. Plan Plan Suicidal ideation Management as per Psychiatry. Sunburn and diffuse excoriating lesions Eucerin emollient thrice daily. [place] 10 q.4h PRN Wound care. Disposition: Hospitalist team will continue to monitor the patient. Yomi Darby Internal Medicine Resident [facility] Date of Service: Dec 25, 2024 Billing Provider: PARI RASHEED MD Common Visit Codes: [id number] INP/OBS CARE(MOD) YOMI BROWN, BRIONNA Dec 25, 2024 19:10 PARI RASHEED MD Dec 25, 2024 21:28
[2024-12-25 19:12] VITALS: RESP 16
[2024-12-25 19:38] VITALS: BP 134/82; PULSE 77; RESP 20; TEMP 98.4; O2SAT 94
[2024-12-26 07:00] VITALS: RESP 16; O2SAT 100
[2024-12-26 08:00] VITALS: BP 113/79; PULSE 76; RESP 16; TEMP 97.7; O2SAT 100
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
[2024-12-26 19:41] VITALS: RESP 16
[2024-12-26 19:46] VITALS: RESP 16
[2024-12-27 07:00] VITALS: BP 122/85; PULSE 85; RESP 14; TEMP 98.1; O2SAT 98
[2024-12-27] MEDS: magnesium hydroxide 30ml (MOM) UD suspension PO PRN (13:06)
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
--- NOTE | 2024-12-27 18:33 | PROGRESS NOTE- Residence ---
Progress Note - Resident Providers to CC Resident Creating Document: CHAO MAGANA CC: RJ MURRELL MD ~ Antibiotic Timeout Antibiotic Ordered?: No Subjective The patient has been evaluated in mental health. Patient denies any acute medical complaints at this moment. He believes he has sunburn improving, and he currently is not experiencing any pain. Objective Vital Signs Date Time Temp Pulse Resp B/P (MAP) Pulse Ox O2 Delivery O2 Flow Rate FiO2 12/27/24 15:21 14 12/27/24 07:00 98.1 85 122/85 (97) 98 Room Air General: awake, alert oriented to place, time, and person HEENT: No pallor present, no icterus, moist mucous membranes Neck: No masses and tenderness Resp: Unlabored. Lungs clear to auscultation bilaterally. Chest: Normal expansion Cardiovascular: Regular Rate and rhythm, normal S1 and S2 without murmur, rub or gallop Abdomen: Soft and nontender, no organomegaly, no guarding and rigidity, bowel sounds present Neuro: No focal weakness in the upper and lower limb muscles, power of the muscles 5/5 bilateral upper and lower extremities, normal reflexes bilaterally. Cranial nerves intact Extremities: No cyanosis,clubbing or edema Skin: Warm and Dry. Scattered excoriation in upper extremities. No signs of infection Psych: Cooperative with care Assessment Assessment 54 years old male patient admitted to mental health unit due to suicidal ideation. Plan Plan Suicidal ideation Management as per Psychiatry. Sunburn and diffuse excoriating lesions, resolving Eucerin emollient thrice daily. [place] 10 q.4h PRN Wound care. Disposition: Hospitalist team will continue to monitor the patient. Chao Hernandez MD Internal Medicine Resident PGY-1 Date of Service: Dec 27, 2024 Billing Provider: RJ MURRELL MD, LEONARDO LUIS Dec 27, 2024 18:33
[2024-12-27 19:00] VITALS: RESP 16; O2SAT 99
[2024-12-27 20:09] VITALS: BP 114/68; PULSE 78; RESP 16; TEMP 98.1; O2SAT 99
[2024-12-28 07:00] VITALS: RESP 16; O2SAT 99
[2024-12-28 08:00] VITALS: BP 105/73; PULSE 79; RESP 16; TEMP 98.6; O2SAT 99
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
[2024-12-28] MEDS ORDERED: QUET-1 PO (15:03)
[2024-12-28] MEDS ORDERED: LITH150C8 PO (15:03)
[2024-12-28] MEDS ORDERED: LORA10TA7 PO (15:03)
[2024-12-28] MEDS ORDERED: MULT-25 PO (15:03)
[2024-12-28] MEDS ORDERED: CYCL-1 PO (15:03)
[2024-12-28] MEDS ORDERED: PANT40TA54 PO (15:03)
[2024-12-28] MEDS ORDERED: FERR325T28 PO (15:03)
[2024-12-28] MEDS ORDERED: MELO-100 PO (15:03)
[2024-12-28] MEDS ORDERED: IBUP-1984 PO (15:03)
[2024-12-28 19:00] VITALS: RESP 18; O2SAT 96
[2024-12-28 20:00] VITALS: BP 99/65; PULSE 82; RESP 18; TEMP 96.6; O2SAT 96
[2024-12-29 07:15] VITALS: RESP 14; O2SAT 92
[2024-12-29 08:32] VITALS: BP 114/87; PULSE 91; RESP 14; TEMP 97.3; O2SAT 94
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
== END 2024-12-29 13:07 | disposition home or self-care (01) | DRG 753 ==
LOC: ADULT MH 11:11
PROVIDERS: ADMIT Psychiatry & Neurology Psychiatry; ATTEND Psychiatry & Neurology Psychiatry
PROC: GZHZZZZ Group Psychotherapy (ICD-10-PCS; principal; 2024-12-19)
PROC: GZ51ZZZ Individual Psychotherapy, Behavioral (ICD-10-PCS; 2024-12-19)
DX: F31.30 Bipolar disorder, current episode depressed, mild or moderate severity, unspecified (principal); R45.851 Suicidal ideations; F15.10 Other stimulant abuse, uncomplicated; L03.818 Cellulitis of other sites; F60.9 Personality disorder, unspecified; L55.1 Sunburn of second degree; Z59.00 Homelessness unspecified; Z79.899 Other long term (current) drug therapy; B19.20 Unspecified viral hepatitis C without hepatic coma; Z80.1 Family history of malignant neoplasm of trachea, bronchus and lung
CPT/HCPCS: 36415; 80053; 80061; 80178; 83036; 85025; 86704; 86705; 87081; 87340; 99285; A6250; A6258; A6446; A6449